=== PATIENT | female | born 1935 | race American Indian/Alaskan Native ===

== ENCOUNTER 2017-08-20 10:19 | Emergency (ER) | payer MEDICARE ==
[~2017-08-20] VITALS: Ht 149.9 cm; Wt 44.0 kg
[~2017-08-20 10:19] MED LIST: ACET325 PO; ACET500 PO; ALBU90OI INH; ALIVE WOMEN'S1 EAC1 PO; ATOR10; Artificial Tea1 EACH BOTHEYES; CHLCLI PO; CIPR500 PO; CITA20 PO; CONEST.625 PO; CONEST1.25; CYAN1000I IM; Cipro250 MG PO; DILT180ER PO; DILTIAZEM ER360 MG PO; Diflucan100 MG PO; Diltiazem ER240 M1 PO; ESTRTP VAG; FAMO20 PO; FEXO60; FEXO60 PO; FLUC150A PO; FLUT.05NI; Fenofibrate200 MG PO; Flonase 0.05% N16 GM; HYDR1TAB94 PO; HYOS0.375T PO; HYOSCYAMINE0.375 M1 PO; LEVSOD75 PO; LISI20 PO; LOPE2C PO; MECL12.5 PO; MECL25 PO; MELA3 PO; METO50; METO50 PO; MONISTAT 7 COM1 EACH VG; Macrobid 100 M100 MG PO; NITR.4SL; NITR.4SL SL; OMEP20ER; PANT40 PO; PHENA200; PHENA200 PO; Pyridium200 MG PO; RANI150 PO; Remicade100 MG IV; SCOPTP TOP; SUCR1 PO; THYR60; THYR60 PO; TRAZ100; TRAZ100 PO; TRAZ50 PO; TRICOR PO; ULTRA-LIGHT RO1 EACH MC; VIT1CAPS12 PO; Vitamin E400 UNI4
[2017-08-20 10:53] LABS: BASOPHILS ABSOLUTE AUTO 0.02 K/mm3 (0.00-0.23); BASOPHILS PERCENT AUTO 0 % (0-2); EOSINOPHILS ABSOLUTE AUTO 0.15 K/mm3 (0.00-0.68); EOSINOPHILS PERCENT AUTO 2 % (0-6); Hematocrit 33.8 % (33.0-51.0); Hemoglobin 11.2 g/dL (11.5-16.0); IMMATURE GRAN ABSOLUTE AUTO 0.01 K/mm3 (0.00-0.10); IMMATURE GRAN PERCENT AUTO 0 % (0-1); LYMPHOCYTES ABSOLUTE AUTO 2.18 K/mm3 (0.84-5.20); LYMPHOCYTES PERCENT AUTO 33 % (21-46); MONOCYTES ABSOLUTE AUTO 0.51 K/mm3 (0.16-1.47); MONOCYTES PERCENT AUTO 8 % (4-13); Mean Corpuscular HGB 30.7 pg (26.0-34.0); Mean Corpuscular HGB Conc 33.1 g/dL (31.5-36.5); Mean Corpuscular Volume 93 fL (80-100); Mean Platelet Volume 9.3 fL (9.1-12.4); NEUTROPHILS ABSOLUTE AUTO 3.71 K/mm3 (1.96-9.15); NEUTROPHILS PERCENT AUTO 56 % (41-73); Platelet Count 263 K/mm3 (150-400); RDW Coefficient Variation 14.8 % (11.7-14.2); Red Blood Cell Count 3.65 M/mm3 (3.80-5.20); White Blood Cell Count 6.58 K/mm3 (4.00-11.30)
[2017-08-20 11:08] LABS: Alanine Aminotransfer (ALT/SGP 17 U/L (12-78); Albumin, Blood 3.6 g/dL (3.4-5.0); Albumin/Globulin Ratio 0.9 (0.8-1.8); Alk Phos 57 U/L (50-136); Anion Gap 9 mmol/L (6-16); Aspartate Aminotrans (AST/SGOT 18 U/L (12-37); Bilirubin, Total 0.3 mg/dL (0.1-1.0); Blood Urea Nitrogen 26 mg/dL (8-24); Bun/Creatinine Ratio 27.4 (12.0-20.0); CO2, Blood 22 mmol/L (21-32); Calcium, Blood 8.9 mg/dL (8.5-10.1); Chloride, Blood 107 mmol/L (98-108); Creatinine, Blood 0.95 mg/dL (0.40-1.00); Glomerular Filtration Rate 60 (60-); Glucose, Blood 101 mg/dL (70-99); Potassium, Blood 4.9 mmol/L (3.5-5.5); Sodium, Blood 138 mmol/L (136-145); Total Protein, Blood 7.6 g/dL (6.4-8.2); Troponin I <0.015 ng/mL (0.000-0.040)
[2017-08-20 11:11] LABS: Thyroid Stimulating Hormone 0.212 uIU/mL (0.360-4.800)
[2017-08-20] MEDS ORDERED: Protonix40 MG PO (12:05)
[2017-08-20] MEDS ORDERED: Nitrostat0.4 MG SL (12:05)
[2018-04-18] MEDS ORDERED: ELIQUIS2.5 MG PO (10:31)
[2018-04-20] MEDS ORDERED: ACET325 PO (11:14)
[2018-04-20] MEDS ORDERED: PANT40 PO (11:20)
[2018-04-20] MEDS ORDERED: LISI5 (11:22)
[2018-04-20] MEDS ORDERED: LISI20 PO (11:33)
[2018-04-20] MEDS ORDERED: LIDOCAINE PAIN1 EACH (11:36)
[2018-04-20] MEDS ORDERED: HYOS.125 SL (11:41)
[2018-04-20] MEDS ORDERED: ONDA4ODT MM (12:29)
[2018-04-26] MEDS ORDERED: METO5A PO (16:45)
[2018-06-29] MEDS ORDERED: METO25ER PO (16:43)
[2018-06-29] MEDS ORDERED: CLOP75 PO (16:44)
[2018-06-29] MEDS ORDERED: LOPE2C PO (16:46)
== END 2017-08-20 12:25 | disposition home or self-care (01) ==
LOC: ER 10:19
PROVIDERS: Emergency Medicine
DX: R07.89 Other chest pain (principal); K27.9 Peptic ulcer, site unspecified, unspecified as acute or chronic, without hemorrhage or perforation; I25.2 Old myocardial infarction; Z88.5 Allergy status to narcotic agent; Z88.8 Allergy status to other drugs, medicaments and biological substances; Z88.0 Allergy status to penicillin; Z91.011 Allergy to milk products; Z88.2 Allergy status to sulfonamides; Z91.018 Allergy to other foods; Z79.899 Other long term (current) drug therapy; Z87.891 Personal history of nicotine dependence
CPT/HCPCS: 71045; 80053; 83690; 83880; 84443; 84484; 85025; 93005; 93010; 96374; 96375; 99284; J2060; J3490

== ENCOUNTER 2017-09-03 18:45 | Emergency (ER) | payer MEDICARE ==
[~2017-09-03] VITALS: Ht 149.9 cm; Wt 44.0 kg
[~2017-09-03 18:45] MED LIST changes: +Nitrostat0.4 MG SL; +Protonix40 MG PO
[2017-09-03] MEDS ORDERED: Citalopram HBr20 MG PO (19:28)
[2017-09-03] MEDS ORDERED: Artificial Tear15 M4 BOTHEYES (19:28)
[2017-09-03] MEDS ORDERED: DILTIAZEM 24HR360 MG PO (19:29)
[2017-09-03] MEDS ORDERED: LISI5 PO (19:30)
[2017-09-03] MEDS ORDERED: MELA3 PO (19:30)
[2017-09-03] MEDS ORDERED: GENTLE IRON PO (19:30)
[2017-09-03] MEDS ORDERED: LEVSOD75 PO (19:30)
[2017-09-03] MEDS ORDERED: PANT40 PO (19:33)
[2017-09-03] MEDS ORDERED: Estrace Vagin42.5 GM VAG (19:34)
[2017-09-03] MEDS ORDERED: TRAZ50 PO (19:34)
[2017-09-03] MEDS ORDERED: RANI150 PO (19:34)
[2017-09-03 19:35] LABS: BASOPHILS ABSOLUTE AUTO 0.02 K/mm3 (0.00-0.23); BASOPHILS PERCENT AUTO 0 % (0-2); EOSINOPHILS ABSOLUTE AUTO 0.27 K/mm3 (0.00-0.68); EOSINOPHILS PERCENT AUTO 4 % (0-6); Hematocrit 32.7 % (33.0-51.0); Hemoglobin 10.8 g/dL (11.5-16.0); IMMATURE GRAN ABSOLUTE AUTO 0.03 K/mm3 (0.00-0.10); IMMATURE GRAN PERCENT AUTO 0 % (0-1); LYMPHOCYTES ABSOLUTE AUTO 2.44 K/mm3 (0.84-5.20); LYMPHOCYTES PERCENT AUTO 35 % (21-46); MONOCYTES ABSOLUTE AUTO 0.71 K/mm3 (0.16-1.47); MONOCYTES PERCENT AUTO 10 % (4-13); Mean Corpuscular HGB 30.6 pg (26.0-34.0); Mean Corpuscular Volume 93 fL (80-100); Mean Platelet Volume 9.4 fL (9.1-12.4); NEUTROPHILS ABSOLUTE AUTO 3.56 K/mm3 (1.96-9.15); NEUTROPHILS PERCENT AUTO 51 % (41-73); Platelet Count 267 K/mm3 (150-400); RDW Coefficient Variation 14.3 % (11.7-14.2); RDW Standard Deviation 48.6 fL (35.1-46.3); Red Blood Cell Count 3.53 M/mm3 (3.80-5.20); White Blood Cell Count 7.03 K/mm3 (4.00-11.30)
[2017-09-03] MEDS ORDERED: ACET325 PO (19:37)
[2017-09-03] MEDS ORDERED: NITR.4SL SL (19:37)
[2017-09-03] MEDS ORDERED: LIDO700A20 TOP (19:37)
[2017-09-03] MEDS ORDERED: ONDA4ODT MM (19:38)
[2017-09-03] MEDS ORDERED: Gas-X125 M1 PO (19:39)
[2017-09-03] MEDS ORDERED: Preparation H1 EAC1 PR (19:39)
[2017-09-03] MEDS ORDERED: ALBU90OI INH (19:40)
[2017-09-03] MEDS ORDERED: ZOSTRIX HP56.6 GM TOP (19:40)
[2017-09-03] MEDS ORDERED: CALMOSEPTINE O3.5 GM TOP (19:41)
[2017-09-03 19:49] LABS: Alanine Aminotransfer (ALT/SGP 25 U/L (12-78); Albumin, Blood 3.7 g/dL (3.4-5.0); Albumin/Globulin Ratio 0.9 (0.8-1.8); Alk Phos 67 U/L (50-136); Anion Gap 10 mmol/L (6-16); Aspartate Aminotrans (AST/SGOT 24 U/L (12-37); Bilirubin, Total 0.3 mg/dL (0.1-1.0); Blood Urea Nitrogen 21 mg/dL (8-24); Bun/Creatinine Ratio 21.4 (12.0-20.0); CO2, Blood 22 mmol/L (21-32); Chloride, Blood 105 mmol/L (98-108); Creatinine, Blood 0.98 mg/dL (0.40-1.00); Globulin, Blood 4.1 g/dL (2.2-4.0); Glomerular Filtration Rate 58 (60-); Glucose, Blood 111 mg/dL (70-99); Potassium, Blood 4.8 mmol/L (3.5-5.5); Sodium, Blood 137 mmol/L (136-145); Total Protein, Blood 7.8 g/dL (6.4-8.2); Troponin I <0.015 ng/mL (0.000-0.040)
[2018-04-18] MEDS ORDERED: ELIQUIS2.5 MG PO (10:31)
[2018-04-20] MEDS ORDERED: ACET325 PO (11:14)
[2018-04-20] MEDS ORDERED: PANT40 PO (11:20)
[2018-04-20] MEDS ORDERED: LISI5 (11:22)
[2018-04-20] MEDS ORDERED: LISI20 PO (11:33)
[2018-04-20] MEDS ORDERED: LIDOCAINE PAIN1 EACH (11:36)
[2018-04-20] MEDS ORDERED: HYOS.125 SL (11:41)
[2018-04-20] MEDS ORDERED: ONDA4ODT MM (12:29)
[2018-04-26] MEDS ORDERED: METO5A PO (16:45)
[2018-06-29] MEDS ORDERED: METO25ER PO (16:43)
[2018-06-29] MEDS ORDERED: CLOP75 PO (16:44)
[2018-06-29] MEDS ORDERED: LOPE2C PO (16:46)
== END 2017-09-03 21:20 | disposition home or self-care (01) ==
LOC: ER 18:45
PROVIDERS: Emergency Medicine
DX: K21.9 Gastro-esophageal reflux disease without esophagitis (principal); F03.90 Unspecified dementia, unspecified severity, without behavioral disturbance, psychotic disturbance, mood disturbance, and anxiety; I10 Essential (primary) hypertension; E03.9 Hypothyroidism, unspecified
CPT/HCPCS: 71045; 76705; 80053; 83690; 84484; 85025; 93005; 93010; 96374; 96375; 96376; 99284; J1170; J2405

== ENCOUNTER → 2017-09-22 | Outpatient (CLI) | payer MEDICARE ==
[~2017-09-22] MED LIST changes: +ALLERGY RELIEF10 MG PO; +ASPI81CH PO; +ATOR40TA PO; +Amiodarone HCl200 MG PO; +Artificial Tear15 M4 BOTHEYES; +BISA10S PR; +CALMOSEPTINE O3.5 GM TOP; +CLOP75 PO; +Citalopram HBr20 MG PO; +DILTIAZEM 24HR360 MG PO; +EFFIENT10 MG PO; +ELIQUIS2.5 MG PO; +Estrace Vagin42.5 GM VAG; +FURO40 PO; +GENTLE IRON PO; +Gas-X125 M1 PO; +HEARTBURN RELI150 M1 PO; +HEMORRHOIDAL OI TOP; +HYDPAM50 PO; +HYOS.125 MM; +HYOS.125 SL; +ISOD40ER PO; +Isosorbide Mono60 MG PO; +LIDO700A20 TOP; +LIDOCAINE PAIN1 EACH; +LISI5; +LISI5 PO; +LOPE2EL PO; +LORA1SY PO; +METO25 PO; +METO25ER PO; +METO5A PO; +Milk Of Ma400 MG/5 M PO; +ONDA4ODT MM; +Preparation H1 EAC1 PR; +RANO500T PO; +SODBIC650 PO; +TAMS.4ER PO; +TUMS300 MG PO; +ZOSTRIX HP56.6 GM TOP; +ZOSTRIX56.6 GM TOP; +Zofran Odt4 MG SL
[2017-09-22 15:52] LABS: BASOPHILS ABSOLUTE AUTO 0.04 K/mm3 (0.00-0.23); BASOPHILS PERCENT AUTO 1 % (0-2); EOSINOPHILS ABSOLUTE AUTO 0.28 K/mm3 (0.00-0.68); EOSINOPHILS PERCENT AUTO 4 % (0-6); Hematocrit 33.4 % (33.0-51.0); Hemoglobin 11.1 g/dL (11.5-16.0); IMMATURE GRAN ABSOLUTE AUTO 0.03 K/mm3 (0.00-0.10); IMMATURE GRAN PERCENT AUTO 0 % (0-1); LYMPHOCYTES ABSOLUTE AUTO 2.14 K/mm3 (0.84-5.20); LYMPHOCYTES PERCENT AUTO 32 % (21-46); MONOCYTES ABSOLUTE AUTO 0.76 K/mm3 (0.16-1.47); MONOCYTES PERCENT AUTO 11 % (4-13); Mean Corpuscular HGB 31.1 pg (26.0-34.0); Mean Corpuscular HGB Conc 33.2 g/dL (31.5-36.5); Mean Corpuscular Volume 94 fL (80-100); Mean Platelet Volume 9.1 fL (9.1-12.4); NEUTROPHILS PERCENT AUTO 52 % (41-73); Platelet Count 284 K/mm3 (150-400); RDW Coefficient Variation 14.5 % (11.7-14.2); RDW Standard Deviation 49.7 fL (35.1-46.3); Red Blood Cell Count 3.57 M/mm3 (3.80-5.20); White Blood Cell Count 6.75 K/mm3 (4.00-11.30)
[2017-09-22 16:20] LABS: Albumin/Globulin Ratio 1.1 (0.8-1.8); Bilirubin, Total 0.2 mg/dL (0.1-1.0); Calcium, Blood 9.1 mg/dL (8.5-10.1); Creatinine, Blood 1.1 mg/dL (0.40-1.00); Globulin, Blood 3.6 g/dL (2.2-4.0); Total Protein, Blood 7.6 g/dL (6.4-8.2)
== END | disposition home or self-care (01) ==
LOC: LAB SHORT 15:49 → LAB EV 15:49
PROVIDERS: Physician Assistant
DX: L29.9 Pruritus, unspecified (principal)
CPT/HCPCS: 80053; 85025

== ENCOUNTER 2017-09-24 05:03 | Observation (INO) | payer MEDICARE ==
[~2017-09-24] VITALS: Ht 149.9 cm; Wt 46.2 kg
[~2017-09-24 05:03] MED LIST changes: -ALLERGY RELIEF10 MG PO; -ASPI81CH PO; -ATOR40TA PO; -Amiodarone HCl200 MG PO; -BISA10S PR; -CLOP75 PO; -EFFIENT10 MG PO; -ELIQUIS2.5 MG PO; -FURO40 PO; -HEARTBURN RELI150 M1 PO; -HEMORRHOIDAL OI TOP; -HYDPAM50 PO; -HYOS.125 MM; -HYOS.125 SL; -ISOD40ER PO; -Isosorbide Mono60 MG PO; -LIDOCAINE PAIN1 EACH; -LISI5; -LOPE2EL PO; -LORA1SY PO; -METO25 PO; -METO25ER PO; -METO5A PO; -Milk Of Ma400 MG/5 M PO; -RANO500T PO; -SODBIC650 PO; -TAMS.4ER PO; -TUMS300 MG PO; -ZOSTRIX56.6 GM TOP; -Zofran Odt4 MG SL
[2017-09-24 05:56] LABS: BASOPHILS ABSOLUTE AUTO 0.01 K/mm3 (0.00-0.23); BASOPHILS PERCENT AUTO 0 % (0-2); EOSINOPHILS ABSOLUTE AUTO 0.11 K/mm3 (0.00-0.68); EOSINOPHILS PERCENT AUTO 1 % (0-6); Hematocrit 39.1 % (33.0-51.0); Hemoglobin 12.9 g/dL (11.5-16.0); IMMATURE GRAN ABSOLUTE AUTO 0.03 K/mm3 (0.00-0.10); IMMATURE GRAN PERCENT AUTO 0 % (0-1); LYMPHOCYTES ABSOLUTE AUTO 0.53 K/mm3 (0.84-5.20); LYMPHOCYTES PERCENT AUTO 5 % (21-46); MONOCYTES ABSOLUTE AUTO 0.76 K/mm3 (0.16-1.47); MONOCYTES PERCENT AUTO 7 % (4-13); Mean Corpuscular HGB 30.9 pg (26.0-34.0); Mean Corpuscular Volume 94 fL (80-100); Mean Platelet Volume 9.2 fL (9.1-12.4); NEUTROPHILS ABSOLUTE AUTO 9.52 K/mm3 (1.96-9.15); NEUTROPHILS PERCENT AUTO 87 % (41-73); Platelet Count 258 K/mm3 (150-400); RDW Coefficient Variation 14.5 % (11.7-14.2); RDW Standard Deviation 50.2 fL (35.1-46.3); Red Blood Cell Count 4.17 M/mm3 (3.80-5.20); White Blood Cell Count 10.96 K/mm3 (4.00-11.30)
[2017-09-24 06:14] LABS: Alanine Aminotransfer (ALT/SGP 75 U/L (12-78); Albumin, Blood 3.8 g/dL (3.4-5.0); Albumin/Globulin Ratio 0.8 (0.8-1.8); Alk Phos 75 U/L (50-136); Anion Gap 10 mmol/L (6-16); Aspartate Aminotrans (AST/SGOT 123 U/L (12-37); Bilirubin, Total 0.5 mg/dL (0.1-1.0); Blood Urea Nitrogen 19 mg/dL (8-24); Bun/Creatinine Ratio 21.5 (12.0-20.0); CO2, Blood 22 mmol/L (21-32); Chloride, Blood 107 mmol/L (98-108); Creatinine, Blood 0.88 mg/dL (0.40-1.00); Globulin, Blood 4.5 g/dL (2.2-4.0); Glomerular Filtration Rate >60 (60-); Glucose, Blood 112 mg/dL (70-99); Potassium, Blood 4.8 mmol/L (3.5-5.5); Sodium, Blood 139 mmol/L (136-145); Total Protein, Blood 8.3 g/dL (6.4-8.2); Troponin I 0.123 ng/mL (0.000-0.040)
[2017-09-24] MEDS ORDERED: HYDPAM50 PO (06:29)
[2017-09-24] MEDS ORDERED: RANI150 PO (06:30)
[2017-09-24] MEDS ORDERED: PANT40 PO (06:30)
[2017-09-24] MEDS ORDERED: ISOD40ER PO (06:32)
[2017-09-24] MEDS ORDERED: BISA10S PR (06:33)
[2017-09-24] MEDS ORDERED: TUMS300 MG PO (06:34)
[2017-09-24] MEDS ORDERED: HEMORRHOIDAL OI TOP (06:36)
[2017-09-24] MEDS ORDERED: LOPE2EL PO (06:40)
[2017-09-24] MEDS ORDERED: LORA1SY PO (06:40)
[2017-09-24] MEDS ORDERED: Milk Of Ma400 MG/5 M PO (06:41)
[2017-09-24] MEDS ORDERED: ZOSTRIX56.6 GM TOP (06:42)
[2017-09-24 09:28] LABS: Magnesium, Blood 1.7 mg/dL (1.6-2.4); Phosphorus, Blood 3.2 mg/dL (2.5-4.9)
[2017-09-25 05:29] LABS: Hematocrit 33.7 % (33.0-51.0); Hemoglobin 10.6 g/dL (11.5-16.0); Mean Corpuscular HGB 30.7 pg (26.0-34.0); Mean Corpuscular HGB Conc 31.5 g/dL (31.5-36.5); Mean Platelet Volume 9.6 fL (9.1-12.4); Platelet Count 220 K/mm3 (150-400); RDW Coefficient Variation 14.6 % (11.7-14.2); Red Blood Cell Count 3.45 M/mm3 (3.80-5.20); White Blood Cell Count 6.67 K/mm3 (4.00-11.30)
[2017-09-25 05:37] LABS: Mean Corpuscular Volume 98 fL (80-100)
[2017-09-25 05:51] LABS: Anion Gap 7 mmol/L (6-16); Blood Urea Nitrogen 23 mg/dL (8-24); Bun/Creatinine Ratio 20.9 (12.0-20.0); CHOL/HDL RATIO 2.7; CO2, Blood 23 mmol/L (21-32); Calcium, Blood 8.2 mg/dL (8.5-10.1); Chloride, Blood 112 mmol/L (98-108); Cholesterol 122 mg/dL (50-200); Glomerular Filtration Rate 51 (60-); Glucose, Blood 86 mg/dL (70-99); HDL Cholesterol 46 mg/dL (>39); LDL/HDL RATIO 0.6; Low Density Lipoprotein Chol 27 mg/dL (0-110); Potassium, Blood 4.7 mmol/L (3.5-5.5); Sodium, Blood 142 mmol/L (136-145); Triglycerides 243 mg/dL (30-160); Very Low Density Lipoprot Chol 48 mg/dL (6-32)
[2017-09-26] MEDS ORDERED: METO25 PO (09:02)
[2017-09-26] MEDS ORDERED: HYOS.125 MM (09:02)
[2017-09-26] MEDS ORDERED: RANO500T PO (09:03)
[2018-04-18] MEDS ORDERED: ELIQUIS2.5 MG PO (10:31)
[2018-04-20] MEDS ORDERED: ACET325 PO (11:14)
[2018-04-20] MEDS ORDERED: PANT40 PO (11:20)
[2018-04-20] MEDS ORDERED: LISI5 (11:22)
[2018-04-20] MEDS ORDERED: LISI20 PO (11:33)
[2018-04-20] MEDS ORDERED: LIDOCAINE PAIN1 EACH (11:36)
[2018-04-20] MEDS ORDERED: HYOS.125 SL (11:41)
[2018-04-20] MEDS ORDERED: ONDA4ODT MM (12:29)
[2018-04-26] MEDS ORDERED: METO5A PO (16:45)
[2018-06-29] MEDS ORDERED: METO25ER PO (16:43)
[2018-06-29] MEDS ORDERED: CLOP75 PO (16:44)
[2018-06-29] MEDS ORDERED: LOPE2C PO (16:46)
== END 2017-09-26 12:09 | disposition home or self-care (01) ==
LOC: ER 05:03 → MEDS 05:04 → ENPENDDIS 09-26 08:30 → MEDS 09-26 12:09
PROVIDERS: Emergency Medicine; Family Medicine
DX: R07.9 Chest pain, unspecified (principal); I10 Essential (primary) hypertension; I48.2 Chronic atrial fibrillation; F03.90 Unspecified dementia, unspecified severity, without behavioral disturbance, psychotic disturbance, mood disturbance, and anxiety; R11.2 Nausea with vomiting, unspecified; E78.1 Pure hyperglyceridemia; K58.9 Irritable bowel syndrome, unspecified; I25.2 Old myocardial infarction; M06.9 Rheumatoid arthritis, unspecified; R79.89 Other specified abnormal findings of blood chemistry; D50.0 Iron deficiency anemia secondary to blood loss (chronic); E03.9 Hypothyroidism, unspecified; E78.5 Hyperlipidemia, unspecified; M79.7 Fibromyalgia; Z90.49 Acquired absence of other specified parts of digestive tract; Z90.710 Acquired absence of both cervix and uterus; Z90.722 Acquired absence of ovaries, bilateral; Z87.11 Personal history of peptic ulcer disease; Z98.41 Cataract extraction status, right eye; Z98.42 Cataract extraction status, left eye; Z96.1 Presence of intraocular lens; Z98.890 Other specified postprocedural states; Z87.891 Personal history of nicotine dependence; Z88.8 Allergy status to other drugs, medicaments and biological substances; Z79.899 Other long term (current) drug therapy
CPT/HCPCS: 36415; 71046; 74176; 80048; 80053; 80061; 83690; 83735; 84100; 84484; 85025; 85027; 93005; 93010; 93017; 93350; 94640; 94760; 96372; 96374; 96375; 96376; 99285; C9113; G0378; J0461; J1170; J1250; J1650; J2405; J2550; J7030; J7040; Q0163; Q0177

== ENCOUNTER 2017-09-26 17:41 | Emergency (ER) | payer MEDICARE ==
[~2017-09-26] VITALS: Ht 162.6 cm; Wt 58.1 kg
[~2017-09-26 17:41] MED LIST changes: +BISA10S PR; +HEMORRHOIDAL OI TOP; +HYDPAM50 PO; +HYOS.125 MM; +ISOD40ER PO; +LOPE2EL PO; +LORA1SY PO; +METO25 PO; +Milk Of Ma400 MG/5 M PO; +RANO500T PO; +TUMS300 MG PO; +ZOSTRIX56.6 GM TOP
[2017-09-26 18:17] LABS: BASOPHILS ABSOLUTE AUTO 0.02 K/mm3 (0.00-0.23); BASOPHILS PERCENT AUTO 0 % (0-2); EOSINOPHILS ABSOLUTE AUTO 0.02 K/mm3 (0.00-0.68); EOSINOPHILS PERCENT AUTO 0 % (0-6); Hematocrit 36.1 % (33.0-51.0); Hemoglobin 11.6 g/dL (11.5-16.0); IMMATURE GRAN ABSOLUTE AUTO 0.12 K/mm3 (0.00-0.10); IMMATURE GRAN PERCENT AUTO 1 % (0-1); LYMPHOCYTES ABSOLUTE AUTO 1.94 K/mm3 (0.84-5.20); LYMPHOCYTES PERCENT AUTO 11 % (21-46); MONOCYTES ABSOLUTE AUTO 1.12 K/mm3 (0.16-1.47); MONOCYTES PERCENT AUTO 7 % (4-13); Mean Corpuscular HGB 30.8 pg (26.0-34.0); Mean Corpuscular HGB Conc 32.1 g/dL (31.5-36.5); Mean Corpuscular Volume 96 fL (80-100); Mean Platelet Volume 9.8 fL (9.1-12.4); NEUTROPHILS ABSOLUTE AUTO 13.73 K/mm3 (1.96-9.15); NEUTROPHILS PERCENT AUTO 81 % (41-73); Platelet Count 285 K/mm3 (150-400); RDW Coefficient Variation 14.2 % (11.7-14.2); RDW Standard Deviation 50.1 fL (35.1-46.3); Red Blood Cell Count 3.77 M/mm3 (3.80-5.20); White Blood Cell Count 16.95 K/mm3 (4.00-11.30)
[2017-09-26 18:18] LABS: Base Excess Venous -8.4 mmol/L; PCO2 Venous 40.9 mmHg (38-42); PO2 Venous 81.1 mmHg (38-42); pH Blood Venous 7.27 (7.34-7.37)
[2017-09-26 18:34] LABS: D-Dimer, Quantitative 0.45 mg/L FEU (0.00-0.52)
[2017-09-26 18:43] LABS: Albumin, Blood 3.7 g/dL (3.4-5.0); Albumin/Globulin Ratio 0.8 (0.8-1.8); Bilirubin, Total 0.5 mg/dL (0.1-1.0); Bun/Creatinine Ratio 23.6 (12.0-20.0); Calcium, Blood 8.9 mg/dL (8.5-10.1); Creatinine, Blood 1.61 mg/dL (0.40-1.00); Globulin, Blood 4.9 g/dL (2.2-4.0); Potassium, Blood 5.2 mmol/L (3.5-5.5); Total Protein, Blood 8.6 g/dL (6.4-8.2)
[2017-09-26 19:07] LABS: Troponin I 1.7 ng/mL (0.000-0.040)
[2017-09-26 20:53] LABS: International Normalized Ratio 0.98; Prothrombin Time Results 10.2 Sec (9.7-11.5)
[2018-04-18] MEDS ORDERED: ELIQUIS2.5 MG PO (10:31)
[2018-04-20] MEDS ORDERED: ACET325 PO (11:14)
[2018-04-20] MEDS ORDERED: PANT40 PO (11:20)
[2018-04-20] MEDS ORDERED: LISI5 (11:22)
[2018-04-20] MEDS ORDERED: LISI20 PO (11:33)
[2018-04-20] MEDS ORDERED: LIDOCAINE PAIN1 EACH (11:36)
[2018-04-20] MEDS ORDERED: HYOS.125 SL (11:41)
[2018-04-20] MEDS ORDERED: ONDA4ODT MM (12:29)
[2018-04-26] MEDS ORDERED: METO5A PO (16:45)
[2018-06-29] MEDS ORDERED: METO25ER PO (16:43)
[2018-06-29] MEDS ORDERED: CLOP75 PO (16:44)
[2018-06-29] MEDS ORDERED: LOPE2C PO (16:46)
== END 2017-09-26 22:55 | disposition short-term general hospital (02) ==
LOC: ER 17:41
PROVIDERS: Emergency Medicine
DX: I21.4 Non-ST elevation (NSTEMI) myocardial infarction (principal); J96.91 Respiratory failure, unspecified with hypoxia; I10 Essential (primary) hypertension; F03.90 Unspecified dementia, unspecified severity, without behavioral disturbance, psychotic disturbance, mood disturbance, and anxiety; E03.9 Hypothyroidism, unspecified; I48.2 Chronic atrial fibrillation; K58.9 Irritable bowel syndrome, unspecified; E78.1 Pure hyperglyceridemia; Z90.710 Acquired absence of both cervix and uterus; Z90.49 Acquired absence of other specified parts of digestive tract; Z88.5 Allergy status to narcotic agent; Z88.2 Allergy status to sulfonamides; Z88.6 Allergy status to analgesic agent; Z88.8 Allergy status to other drugs, medicaments and biological substances; Z91.018 Allergy to other foods; Z91.011 Allergy to milk products; Z79.899 Other long term (current) drug therapy
CPT/HCPCS: 71045; 80053; 82803; 83880; 84484; 85025; 85379; 85610; 85730; 93005; 93010; 96365; 96375; 99285; J1644; J2270; J3010; J7040

== ENCOUNTER 2017-10-31 11:26 | Emergency (ER) | payer MEDICARE ==
[~2017-10-31] VITALS: Ht 152.4 cm; Wt 44.0 kg
[2017-10-31] MEDS ORDERED: ATOR40TA PO (11:48)
[2017-10-31] MEDS ORDERED: ELIQUIS2.5 MG PO (11:49)
[2017-10-31] MEDS ORDERED: EFFIENT10 MG PO (11:49)
[2017-10-31] MEDS ORDERED: ASPI81CH PO (11:51)
[2017-10-31] MEDS ORDERED: FURO40 PO (11:51)
[2017-10-31] MEDS ORDERED: Amiodarone HCl200 MG PO (11:51)
[2017-10-31] MEDS ORDERED: Isosorbide Mono60 MG PO (11:52)
[2017-10-31 11:53] LABS: BASOPHILS ABSOLUTE AUTO 0.05 K/mm3 (0.00-0.23); BASOPHILS PERCENT AUTO 1 % (0-2); EOSINOPHILS ABSOLUTE AUTO 0.06 K/mm3 (0.00-0.68); EOSINOPHILS PERCENT AUTO 1 % (0-6); Hematocrit 33.4 % (33.0-51.0); Hemoglobin 10.6 g/dL (11.5-16.0); IMMATURE GRAN ABSOLUTE AUTO 0.09 K/mm3 (0.00-0.10); IMMATURE GRAN PERCENT AUTO 1 % (0-1); LYMPHOCYTES ABSOLUTE AUTO 2.81 K/mm3 (0.84-5.20); LYMPHOCYTES PERCENT AUTO 27 % (21-46); MONOCYTES PERCENT AUTO 8 % (4-13); Mean Corpuscular HGB 29.9 pg (26.0-34.0); Mean Corpuscular HGB Conc 31.7 g/dL (31.5-36.5); Mean Corpuscular Volume 94 fL (80-100); Mean Platelet Volume 9.7 fL (9.1-12.4); NEUTROPHILS ABSOLUTE AUTO 6.44 K/mm3 (1.96-9.15); NEUTROPHILS PERCENT AUTO 63 % (41-73); Platelet Count 397 K/mm3 (150-400); RDW Coefficient Variation 14.6 % (11.7-14.2); RDW Standard Deviation 49.8 fL (35.1-46.3); Red Blood Cell Count 3.55 M/mm3 (3.80-5.20); White Blood Cell Count 10.25 K/mm3 (4.00-11.30)
[2017-10-31] MEDS ORDERED: METO25ER PO (11:53)
[2017-10-31 12:05] LABS: Albumin, Blood 3.3 g/dL (3.4-5.0); Albumin/Globulin Ratio 0.9 (0.8-1.8); Bilirubin, Total 0.5 mg/dL (0.1-1.0); Calcium, Blood 8.2 mg/dL (8.5-10.1); Creatinine, Blood 1.5 mg/dL (0.40-1.00); Globulin, Blood 3.6 g/dL (2.2-4.0); Potassium, Blood 5.7 mmol/L (3.5-5.5); Total Protein, Blood 6.9 g/dL (6.4-8.2)
[2017-10-31] MEDS ORDERED: Zofran Odt4 MG SL (14:27)
[2018-04-18] MEDS ORDERED: ELIQUIS2.5 MG PO (10:31)
[2018-04-20] MEDS ORDERED: ACET325 PO (11:14)
[2018-04-20] MEDS ORDERED: PANT40 PO (11:20)
[2018-04-20] MEDS ORDERED: LISI5 (11:22)
[2018-04-20] MEDS ORDERED: LISI20 PO (11:33)
[2018-04-20] MEDS ORDERED: LIDOCAINE PAIN1 EACH (11:36)
[2018-04-20] MEDS ORDERED: HYOS.125 SL (11:41)
[2018-04-20] MEDS ORDERED: ONDA4ODT MM (12:29)
[2018-04-26] MEDS ORDERED: METO5A PO (16:45)
[2018-06-29] MEDS ORDERED: METO25ER PO (16:43)
[2018-06-29] MEDS ORDERED: CLOP75 PO (16:44)
[2018-06-29] MEDS ORDERED: LOPE2C PO (16:46)
== END 2017-10-31 15:47 | disposition home or self-care (01) ==
LOC: ER 11:26
PROVIDERS: Physician Assistant
DX: J90 Pleural effusion, not elsewhere classified (principal); R11.2 Nausea with vomiting, unspecified; E03.9 Hypothyroidism, unspecified; E78.5 Hyperlipidemia, unspecified; Z88.5 Allergy status to narcotic agent; Z91.018 Allergy to other foods; Z91.011 Allergy to milk products; Z88.0 Allergy status to penicillin; Z88.2 Allergy status to sulfonamides; Z88.6 Allergy status to analgesic agent; Z88.8 Allergy status to other drugs, medicaments and biological substances; Z79.899 Other long term (current) drug therapy; Z79.82 Long term (current) use of aspirin; Z87.891 Personal history of nicotine dependence; Z87.11 Personal history of peptic ulcer disease
CPT/HCPCS: 71046; 74176; 80053; 83690; 85025; 93005; 93010; 96361; 96374; 99284; J2405; J7030

== ENCOUNTER 2018-04-08 14:39 | Inpatient (IN) | payer MEDICARE ==
[~2018-04-08] VITALS: Ht 152.4 cm; Wt 64.1 kg
[~2018-04-08 14:39] MED LIST changes: +ASPI81CH PO; +ATOR40TA PO; +Amiodarone HCl200 MG PO; +EFFIENT10 MG PO; +ELIQUIS2.5 MG PO; +FURO40 PO; +ISOMON20 PO; +METO25ER PO; +Zofran Odt4 MG SL
[2018-04-08 15:14] LABS: Source, Urine Clean Catch
[2018-04-08] MEDS ORDERED: ALLERGY RELIEF10 MG PO (15:15)
[2018-04-08] MEDS ORDERED: HEARTBURN RELI150 M1 PO (15:20)
[2018-04-08 15:25] LABS: BASOPHILS ABSOLUTE AUTO 0.02 K/mm3 (0.00-0.23); BASOPHILS PERCENT AUTO 0 % (0-2); EOSINOPHILS ABSOLUTE AUTO 0.06 K/mm3 (0.00-0.68); EOSINOPHILS PERCENT AUTO 1 % (0-6); Hematocrit 37.3 % (33.0-51.0); Hemoglobin 12.4 g/dL (11.5-16.0); IMMATURE GRAN ABSOLUTE AUTO 0.04 K/mm3 (0.00-0.10); IMMATURE GRAN PERCENT AUTO 1 % (0-1); LYMPHOCYTES ABSOLUTE AUTO 2.09 K/mm3 (0.84-5.20); LYMPHOCYTES PERCENT AUTO 25 % (21-46); MONOCYTES ABSOLUTE AUTO 0.85 K/mm3 (0.16-1.47); MONOCYTES PERCENT AUTO 10 % (4-13); Mean Corpuscular HGB 29.4 pg (26.0-34.0); Mean Corpuscular HGB Conc 33.2 g/dL (31.5-36.5); Mean Corpuscular Volume 88 fL (80-100); Mean Platelet Volume 9.7 fL (9.1-12.4); NEUTROPHILS ABSOLUTE AUTO 5.24 K/mm3 (1.96-9.15); NEUTROPHILS PERCENT AUTO 63 % (41-73); Platelet Count 286 K/mm3 (150-400); RDW Coefficient Variation 14.7 % (11.7-14.2); RDW Standard Deviation 47.8 fL (35.1-46.3); Red Blood Cell Count 4.22 M/mm3 (3.80-5.20)
[2018-04-08 15:29] LABS: Appearance, Urine Clear (Clear); Bilirubin, Urine Neg (Neg); Blood, Urine 2+ (Neg); Color, Urine Yellow (P-Yellow); Glucose Qualitative, Urine Neg (Neg); Ketones, Urine Neg (Neg); Leukocyte Esterase, Urine Neg (Neg); Nitrite, Urine Neg (Neg); Protein, Urine 2+ (Neg); Specific Gravity, Urine 1.015 (1.003-1.022); Urobilinogen, Urine NORM (Normal)
[2018-04-08 15:40] LABS: Alanine Aminotransfer (ALT/SGP 28 U/L (12-78); Albumin, Blood 4.3 g/dL (3.4-5.0); Albumin/Globulin Ratio 0.9 (0.8-1.8); Alk Phos 75 U/L (50-136); Anion Gap 10 mmol/L (6-16); Aspartate Aminotrans (AST/SGOT 26 U/L (12-37); Bilirubin, Total 0.5 mg/dL (0.1-1.0); Blood Urea Nitrogen 48 mg/dL (8-24); Bun/Creatinine Ratio 34.3 (12.0-20.0); CO2, Blood 21 mmol/L (21-32); Calcium, Blood 9.2 mg/dL (8.5-10.1); Chloride, Blood 103 mmol/L (98-108); Globulin, Blood 4.8 g/dL (2.2-4.0); Glomerular Filtration Rate 38 (60-); Glucose, Blood 116 mg/dL (70-99); Potassium, Blood 4.9 mmol/L (3.5-5.5); Sodium, Blood 134 mmol/L (136-145); Total Protein, Blood 9.1 g/dL (6.4-8.2)
[2018-04-08 15:41] LABS: Bacteria Few /hpf; Squamous Epithelial Cells Few /hpf (Few); White Blood Cells, Urine 0-2 /hpf (0-5)
[2018-04-08 15:41] LABS: International Normalized Ratio 1.02; Prothrombin Time Results 10.5 Sec (9.7-11.5)
[2018-04-08 15:42] LABS: Troponin I <0.015 ng/mL (0.000-0.040)
[2018-04-09 03:30] LABS: Bun/Creatinine Ratio 23.6 (12.0-20.0); Creatinine, Blood 2.29 mg/dL (0.40-1.00)
[2018-04-10 05:05] LABS: BASOPHILS ABSOLUTE AUTO 0.02 K/mm3 (0.00-0.23); BASOPHILS PERCENT AUTO 0 % (0-2); EOSINOPHILS PERCENT AUTO 4 % (0-6); Hematocrit 38.1 % (33.0-51.0); Hemoglobin 11.8 g/dL (11.5-16.0); IMMATURE GRAN ABSOLUTE AUTO 0.03 K/mm3 (0.00-0.10); IMMATURE GRAN PERCENT AUTO 0 % (0-1); LYMPHOCYTES ABSOLUTE AUTO 2.73 K/mm3 (0.84-5.20); LYMPHOCYTES PERCENT AUTO 34 % (21-46); MONOCYTES ABSOLUTE AUTO 0.75 K/mm3 (0.16-1.47); MONOCYTES PERCENT AUTO 9 % (4-13); Mean Corpuscular HGB 28.7 pg (26.0-34.0); Mean Platelet Volume 9.7 fL (9.1-12.4); NEUTROPHILS ABSOLUTE AUTO 4.13 K/mm3 (1.96-9.15); NEUTROPHILS PERCENT AUTO 52 % (41-73); Platelet Count 226 K/mm3 (150-400); RDW Coefficient Variation 15.1 % (11.7-14.2); RDW Standard Deviation 51.7 fL (35.1-46.3); Red Blood Cell Count 4.11 M/mm3 (3.80-5.20); White Blood Cell Count 7.96 K/mm3 (4.00-11.30)
[2018-04-10 05:12] LABS: Mean Corpuscular Volume 93 fL (80-100)
[2018-04-10 05:22] LABS: Bun/Creatinine Ratio 20.5 (12.0-20.0); Calcium, Blood 8.4 mg/dL (8.5-10.1); Creatinine, Blood 3.65 mg/dL (0.40-1.00); Magnesium, Blood 2.8 mg/dL (1.6-2.4); Potassium, Blood 5.4 mmol/L (3.5-5.5)
[2018-04-10 09:03] LABS: CPK Creatine Kinase 117 U/L (26-193)
[2018-04-10 09:06] LABS: Alanine Aminotransfer (ALT/SGP 22 U/L (12-78); Albumin, Blood 3.4 g/dL (3.4-5.0); Albumin/Globulin Ratio 0.8 (0.8-1.8); Alk Phos 60 U/L (50-136); Aspartate Aminotrans (AST/SGOT 26 U/L (12-37); Bilirubin, Direct <0.1 mg/dL (0.0-0.3); Bilirubin, Indirect Unable to Calculate mg/dL (0.1-0.7); Bilirubin, Total 0.4 mg/dL (0.1-1.0); Total Protein, Blood 7.4 g/dL (6.4-8.2)
[2018-04-11 05:39] LABS: Hematocrit 31.6 % (33.0-51.0); Hemoglobin 9.7 g/dL (11.5-16.0)
[2018-04-11 06:09] LABS: Magnesium, Blood 2.4 mg/dL (1.6-2.4); Uric Acid, Blood 8.1 mg/dL (2.6-6.0)
[2018-04-11 06:10] LABS: Albumin, Blood 3.2 g/dL (3.4-5.0); Anion Gap 9 mmol/L (6-16); Blood Urea Nitrogen 72 mg/dL (8-24); Bun/Creatinine Ratio 30.1 (12.0-20.0); CO2, Blood 19 mmol/L (21-32); Calcium, Blood 7.6 mg/dL (8.5-10.1); Chloride, Blood 111 mmol/L (98-108); Creatinine, Blood 2.39 mg/dL (0.40-1.00); Glomerular Filtration Rate 21 (60-); Glucose, Blood 86 mg/dL (70-99); Phosphorus, Blood 4.2 mg/dL (2.5-4.9); Potassium, Blood 5.3 mmol/L (3.5-5.5); Sodium, Blood 139 mmol/L (136-145)
[2018-04-12 05:36] LABS: Hematocrit 30.4 % (33.0-51.0); Hemoglobin 9.7 g/dL (11.5-16.0)
[2018-04-12 05:55] LABS: Anion Gap 6 mmol/L (6-16); Blood Urea Nitrogen 38 mg/dL (8-24); Bun/Creatinine Ratio 29.5 (12.0-20.0); CO2, Blood 21 mmol/L (21-32); Calcium, Blood 7.9 mg/dL (8.5-10.1); Chloride, Blood 116 mmol/L (98-108); Creatinine, Blood 1.29 mg/dL (0.40-1.00); Glomerular Filtration Rate 42 (60-); Glucose, Blood 86 mg/dL (70-99); Magnesium, Blood 2.2 mg/dL (1.6-2.4); Phosphorus, Blood 2.3 mg/dL (2.5-4.9); Potassium, Blood 5.1 mmol/L (3.5-5.5); Sodium, Blood 143 mmol/L (136-145)
[2018-04-12] MEDS ORDERED: SODBIC650 PO (09:55)
[2018-04-12] MEDS ORDERED: TAMS.4ER PO (09:57)
[2018-04-13 05:04] LABS: Hematocrit 31.5 % (33.0-51.0); Hemoglobin 10.3 g/dL (11.5-16.0)
[2018-04-13 05:26] LABS: Albumin, Blood 3.3 g/dL (3.4-5.0); Anion Gap 6 mmol/L (6-16); Blood Urea Nitrogen 30 mg/dL (8-24); CO2, Blood 24 mmol/L (21-32); Calcium, Blood 8.5 mg/dL (8.5-10.1); Chloride, Blood 111 mmol/L (98-108); Glomerular Filtration Rate 46 (60-); Glucose, Blood 90 mg/dL (70-99); Phosphorus, Blood 2.6 mg/dL (2.5-4.9); Potassium, Blood 5.1 mmol/L (3.5-5.5); Sodium, Blood 141 mmol/L (136-145)
== END 2018-04-13 19:00 | disposition home or self-care (01) | DRG 304 ==
LOC: DELPENDDIS → ER 14:39 → MEDS 17:40 → ENPENDDIS 04-12 09:30 → MEDS 04-13 13:05
PROVIDERS: Internal Medicine; Internal Medicine Nephrology; Nurse Practitioner Acute Care; Physician Assistant
DX: I16.0 Hypertensive urgency (principal); N17.0 Acute kidney failure with tubular necrosis; E87.2 Acidosis; M19.90 Unspecified osteoarthritis, unspecified site; Z87.891 Personal history of nicotine dependence; I25.2 Old myocardial infarction; K58.9 Irritable bowel syndrome, unspecified; K27.9 Peptic ulcer, site unspecified, unspecified as acute or chronic, without hemorrhage or perforation; M79.7 Fibromyalgia; K21.9 Gastro-esophageal reflux disease without esophagitis; I25.10 Atherosclerotic heart disease of native coronary artery without angina pectoris; Z95.5 Presence of coronary angioplasty implant and graft; E78.5 Hyperlipidemia, unspecified; M06.9 Rheumatoid arthritis, unspecified; D50.9 Iron deficiency anemia, unspecified; Z66 Do not resuscitate; Z88.8 Allergy status to other drugs, medicaments and biological substances; N18.9 Chronic kidney disease, unspecified; F32.9 Major depressive disorder, single episode, unspecified; E87.5 Hyperkalemia; E86.9 Volume depletion, unspecified; R33.9 Retention of urine, unspecified; I48.2 Chronic atrial fibrillation; I12.9 Hypertensive chronic kidney disease with stage 1 through stage 4 chronic kidney disease, or unspecified chronic kidney disease
CPT/HCPCS: 36415; 51702; 71045; 71046; 76770; 80048; 80053; 80069; 80076; 81001; 82550; 82607; 82728; 82746; 83540; 83550; 83735; 83880; 84443; 84484; 84550; 85014; 85018; 85025; 85610; 85730; 93005; 93010; 96361; 96374; 96375; 96376; 97110; 97116; 97162; 97165; 97530; 97535; 99285-25; G0378; G8978; G8979; G8987; G8988; G8989; J0360; J0881; J1885; J2405; J3010; J7030; J7060

== ENCOUNTER 2018-04-14 04:28 | Emergency (ER) | payer MEDICARE ==
[~2018-04-14] VITALS: Ht 160 cm; Wt 59.0 kg
[~2018-04-14 04:28] MED LIST changes: +ALLERGY RELIEF10 MG PO; +HEARTBURN RELI150 M1 PO; -ISOMON20 PO; +Isosorbide Mono60 MG PO; +SODBIC650 PO; +TAMS.4ER PO
[2018-04-14 05:29] LABS: BASOPHILS ABSOLUTE AUTO 0.02 K/mm3 (0.00-0.23); BASOPHILS PERCENT AUTO 0 % (0-2); EOSINOPHILS ABSOLUTE AUTO 0.15 K/mm3 (0.00-0.68); EOSINOPHILS PERCENT AUTO 2 % (0-6); Hematocrit 36.5 % (33.0-51.0); Hemoglobin 12.1 g/dL (11.5-16.0); IMMATURE GRAN ABSOLUTE AUTO 0.03 K/mm3 (0.00-0.10); IMMATURE GRAN PERCENT AUTO 0 % (0-1); LYMPHOCYTES ABSOLUTE AUTO 1.67 K/mm3 (0.84-5.20); LYMPHOCYTES PERCENT AUTO 25 % (21-46); MONOCYTES ABSOLUTE AUTO 0.63 K/mm3 (0.16-1.47); MONOCYTES PERCENT AUTO 9 % (4-13); Mean Corpuscular HGB 29.5 pg (26.0-34.0); Mean Corpuscular HGB Conc 33.2 g/dL (31.5-36.5); Mean Platelet Volume 9.3 fL (9.1-12.4); NEUTROPHILS ABSOLUTE AUTO 4.19 K/mm3 (1.96-9.15); NEUTROPHILS PERCENT AUTO 63 % (41-73); Platelet Count 186 K/mm3 (150-400); RDW Standard Deviation 45.3 fL (35.1-46.3); White Blood Cell Count 6.69 K/mm3 (4.00-11.30)
[2018-04-14 05:31] LABS: Mean Corpuscular Volume 89 fL (80-100)
[2018-04-14 05:45] LABS: Albumin/Globulin Ratio 0.9 (0.8-1.8); Bilirubin, Total 0.4 mg/dL (0.1-1.0); Bun/Creatinine Ratio 20.2 (12.0-20.0); Calcium, Blood 9.3 mg/dL (8.5-10.1); Creatinine, Blood 1.09 mg/dL (0.40-1.00); Globulin, Blood 4.5 g/dL (2.2-4.0); Potassium, Blood 4.8 mmol/L (3.5-5.5); Total Protein, Blood 8.5 g/dL (6.4-8.2)
[2018-04-18] MEDS ORDERED: ELIQUIS2.5 MG PO (10:31)
== END 2018-04-14 09:07 | disposition home or self-care (01) ==
LOC: ER 04:28
PROVIDERS: Emergency Medicine
DX: M79.1 Myalgia (principal); G89.29 Other chronic pain; I25.2 Old myocardial infarction; Z91.018 Allergy to other foods; Z91.011 Allergy to milk products; Z88.0 Allergy status to penicillin; Z88.2 Allergy status to sulfonamides; Z88.8 Allergy status to other drugs, medicaments and biological substances; Z88.6 Allergy status to analgesic agent; Z79.899 Other long term (current) drug therapy; Z79.51 Long term (current) use of inhaled steroids; Z87.891 Personal history of nicotine dependence
CPT/HCPCS: 36415; 80053; 82550; 85025; 99284

== ENCOUNTER → 2018-08-09 | Outpatient (CLI) | payer MEDICARE ==
[~2018-08-09] MED LIST changes: +BUSP10 PO; +CLOP75 PO; +DOCU100 PO; +HYOS.125 SL; +LIDOCAINE PAIN1 EACH; +LISI5; +METO5A PO
[2018-08-09 11:22] LABS: Bilirubin, Urine Neg (Neg); Blood, Urine 1+ (Neg); Glucose Qualitative, Urine Neg (Neg); Ketones, Urine Neg (Neg); Leukocyte Esterase, Urine 2+ (Neg); Nitrite, Urine Neg (Neg); Protein, Urine 2+ (Neg); Urobilinogen, Urine NORM (Normal)
[2018-08-09 12:01] LABS: Appearance, Urine Clear (Clear); Color, Urine Yellow (P-Yellow)
[2018-08-09 12:03] LABS: Red Blood Cells, Urine 0-2 /hpf (0-2)
[2018-08-09 12:04] LABS: Bacteria Mod /hpf; Squamous Epithelial Cells Mod /hpf (Few); Transitional Epithelial Cells Few /hpf (0-Rare)
== END | disposition home or self-care (01) ==
LOC: LAB 08:00 → LAB SHORT 08:00
PROVIDERS: Physician Assistant
DX: N39.0 Urinary tract infection, site not specified (principal)
CPT/HCPCS: 81001; 87086

== ENCOUNTER 2018-08-18 16:35 | Inpatient (IN) | payer MEDICARE ==
[~2018-08-18] VITALS: Ht 152.4 cm; Wt 46.4 kg
[~2018-08-18 16:35] MED LIST changes: -BUSP10 PO; -DOCU100 PO
[2018-08-18 17:03] LABS: Source, Urine Clean Catch
[2018-08-18 17:07] LABS: Appearance, Urine Clear (Clear); Bilirubin, Urine Neg (Neg); Blood, Urine 2+ (Neg); Color, Urine Yellow (P-Yellow); Glucose Qualitative, Urine Neg (Neg); Ketones, Urine Neg (Neg); Leukocyte Esterase, Urine 2+ (Neg); Nitrite, Urine Neg (Neg); Protein, Urine 2+ (Neg); Urobilinogen, Urine NORM (Normal); pH, Urine 6.5 (5.0-8.0)
[2018-08-18 17:19] LABS: Bacteria Rare /hpf; Squamous Epithelial Cells Few /hpf (Few)
[2018-08-18] MEDS ORDERED: BUSP10 PO (17:53)
--- NOTE | 2018-08-19 03:48 | NUR ---
SHIFT SUMMARY PT RESTING QUIETLY HF, DURING SHIFT REPORT. NEW ADMIT, JUST PRIOR TO START OF SHIFT FOR ACUTE ON CHRONIC KIDNEY FAILURE AND POSSIBLE UTI. PT FROM [facility]. RECEIVED URETHRAL DILATIONS Q3 MONTHS; DONE LAST PRIOR TO COMING TO ER ON . PT UP TO BSC FREQUENTLY, VOIDING ONLY VERY SM AMTS. PER SHIFT REPORT, PVR ONLY 13cc. NO RETENTION NOTED, JUST SPASMS. RENAL US FOR THIS AM. PT MEDICATED PER EMAR AT START OF NOC SHIFT FOR C/O PAIN "ALL OVER". HX OF RA AND FIBROMYALGIA. PT THIN AND FRAIL; DECLINED ANYTHING TO EAT. PT HAS RESTED WELL THRU OUT THE NIGHT. CALL LT IN REACH.
--- NOTE | 2018-08-19 05:12 | NUR ---
PT AWAKE AND UP TO BSC THIS AM. VOIDING ONLY 100cc. BLADDER SCAN DONE PER ORDERS; 280cc. IVF'S STOPPED PER ORDERS. PT REPOSITIONED WHEN FINISHED. CALL LT IN REACH.
[2018-08-19 05:24] LABS: Hematocrit 33.1 % (33.0-51.0); Hemoglobin 10.6 g/dL (11.5-16.0); Mean Corpuscular HGB 29.8 pg (26.0-34.0); Mean Platelet Volume 9.5 fL (9.1-12.4); Platelet Count 202 K/mm3 (150-400); RDW Coefficient Variation 13.5 % (11.7-14.2); RDW Standard Deviation 46.4 fL (35.1-46.3); Red Blood Cell Count 3.56 M/mm3 (3.80-5.20); White Blood Cell Count 4.34 K/mm3 (4.00-11.30)
[2018-08-19 05:38] LABS: Mean Corpuscular Volume 93 fL (80-100)
[2018-08-19 05:45] LABS: Albumin, Blood 3.6 g/dL (3.4-5.0); Anion Gap 7 mmol/L (6-16); Blood Urea Nitrogen 48 mg/dL (8-24); Bun/Creatinine Ratio 16.2 (12.0-20.0); CO2, Blood 27 mmol/L (21-32); Calcium, Blood 8.2 mg/dL (8.5-10.1); Chloride, Blood 104 mmol/L (98-108); Creatinine, Blood 2.97 mg/dL (0.40-1.00); Glomerular Filtration Rate 16 (60-); Glucose, Blood 90 mg/dL (70-99); Phosphorus, Blood 3.5 mg/dL (2.5-4.9); Potassium, Blood 4.2 mmol/L (3.5-5.5); Sodium, Blood 138 mmol/L (136-145)
--- NOTE | 2018-08-19 06:19 | NUR ---
PT'S BACKEND DEVELOPER CALLED AT 2044 LAST NIGHT, REQUESTING ADMITTING DX; [phone]
--- NOTE | 2018-08-19 16:07 | NUR ---
PT A/OX3, PLEASANT AND COOPERATIVE, THE PT IS MILDLY ANXIOUS, APPEARS TO BE HER BASE LINE, THE PT IS A 1-2 PERSON ASSIST UP TO THE BSC, WEAK AND SHACKEY ON HER FEET, THE PT APPEARS TO BE BREATHING EASILY AT REST SOB WITH EXCERTION, THE PT WAS MEDICATED FOR PAIN WITH TYLENOL X2 TODAY, PT WAS UP FREQUANTLY TO URINATE SMALL AMOUNTS AT A TIME, CALL LIGHT IN REACH, BED ALARM ON,BED IN THE LOW POSITION
--- NOTE | 2018-08-20 03:25 | NUR ---
SHIFT SUMMARY NO ACUTE CHANGES TO PRESENT THIS SHIFT. PT HAS RESTED BETTER TONIGHT THAN FIRST NIGHT. NOT UP TO BSC NEAR MUCH. IVF'S COMPLETE WELL. NO C/O OF PAIN OR REQUEST FOR PAIN MEDICATION. DENIED NAUSEA. N/T IN FEET. REPORTED NO BM FOR AT LEAST 2 DAYS. FLAT AFFECT. CALLS APPROPRIATELY WHEN NEEDING ASSIST. CALL LT IN REACH.
[2018-08-20 05:45] LABS: Bun/Creatinine Ratio 18.5 (12.0-20.0); Calcium, Blood 8.5 mg/dL (8.5-10.1); Creatinine, Blood 1.78 mg/dL (0.40-1.00); Potassium, Blood 4.2 mmol/L (3.5-5.5)
--- NOTE | 2018-08-20 15:19 | NUR ---
DR HAYWOOD NOTIFIED OF BP AT THIS TIME. NO NEW ORDERS AT THIS TIME
[2018-08-20] MEDS ORDERED: DOCU100 PO (15:34)
--- NOTE | 2018-08-20 17:40 | NUR ---
SHIFT SUMMARY/DISCHARGE SUMMARY PT DISCHARGED HOME TO [facility]. PT LEFT ROOM JUST PRIOR TO THIS NOTE. PT LEFT ROOM VIA WHEELCHAIR WITH TRANSPORT SERVICE. VSS THOUGH HYPERTENSIVE, DR AWARE. NO ACUTE CHANGES THIS SHIFT. PT UP TO BSC WITH ASSISTANCE EVERY 30- 45 MIN AND VOIDING 50ML AT A TIME. REPORT CALLED TO DANIA AT [facility] AT 1740.
== END 2018-08-20 17:35 | disposition home or self-care (01) | DRG 683 ==
LOC: ER 16:35 → MEDS 18:05 → ENPENDDIS 08-20 14:47 → EDPENDDIS 08-20 14:47 → MEDS 08-20 17:35
PROVIDERS: Emergency Medicine; Hospitalist; Nurse Practitioner Acute Care; ADMIT Internal Medicine
DX: N17.9 Acute kidney failure, unspecified (principal); I13.0 Hypertensive heart and chronic kidney disease with heart failure and stage 1 through stage 4 chronic kidney disease, or unspecified chronic kidney disease; I50.32 Chronic diastolic (congestive) heart failure; I25.10 Atherosclerotic heart disease of native coronary artery without angina pectoris; N18.9 Chronic kidney disease, unspecified; K21.9 Gastro-esophageal reflux disease without esophagitis; F32.9 Major depressive disorder, single episode, unspecified; Z88.6 Allergy status to analgesic agent; Z88.5 Allergy status to narcotic agent; Z88.0 Allergy status to penicillin; Z88.2 Allergy status to sulfonamides; Z88.8 Allergy status to other drugs, medicaments and biological substances; Z91.018 Allergy to other foods; Z86.718 Personal history of other venous thrombosis and embolism
CPT/HCPCS: 36415; 51798; 76770; 80048; 80069; 81001; 82570; 83735; 84540; 84550; 85027; 87086; 99284; J7030

== ENCOUNTER 2018-10-18 06:34 | Emergency (ER) | payer MEDICARE, OTHER ==
[~2018-10-18] VITALS: Ht 152.4 cm; Wt 49.9 kg
[~2018-10-18 06:34] MED LIST changes: +BUSP10 PO; +DOCU100 PO
[2018-10-18] MEDS ORDERED: ASPERCREME1 EACH TP (06:54)
[2018-10-18] MEDS ORDERED: CETI5 PO (06:55)
[2018-10-18] MEDS ORDERED: Protonix40 MG PO (06:55)
[2018-10-18] MEDS ORDERED: Hydrocodone-Ap1 EA23 PO (08:21)
== END 2018-10-18 09:00 | disposition home or self-care (01) ==
LOC: ER 06:34
DX: S00.83XA Contusion of other part of head, initial encounter (principal); W19.XXXA Unspecified fall, initial encounter; I12.9 Hypertensive chronic kidney disease with stage 1 through stage 4 chronic kidney disease, or unspecified chronic kidney disease; N18.9 Chronic kidney disease, unspecified; F32.9 Major depressive disorder, single episode, unspecified; Z88.0 Allergy status to penicillin; Z88.2 Allergy status to sulfonamides; Z88.5 Allergy status to narcotic agent; Z79.899 Other long term (current) drug therapy; Z91.018 Allergy to other foods; Z88.6 Allergy status to analgesic agent; Z87.891 Personal history of nicotine dependence
CPT/HCPCS: 10160; 99283-25

== ENCOUNTER 2018-10-20 10:56 | Emergency (ER) | payer MEDICARE, OTHER ==
[~2018-10-20] VITALS: Ht 152.4 cm; Wt 54.4 kg
[~2018-10-20 10:56] MED LIST changes: +ASPERCREME1 EACH TP; +CETI5 PO; +Hydrocodone-Ap1 EA23 PO
[2018-10-20] MEDS ORDERED: LEVSOD75 PO (11:17)
[2018-10-20] MEDS ORDERED: Isosorbide Mono30 MG PO (11:17)
[2018-10-20] MEDS ORDERED: CHOL10002 PO (11:18)
[2018-10-20] MEDS ORDERED: LISI5 PO (11:18)
[2018-10-20] MEDS ORDERED: TRAZ50 PO (11:18)
[2018-10-20] MEDS ORDERED: HYDR1TAB94 PO (12:29)
== END 2018-10-20 16:10 | disposition home or self-care (01) ==
LOC: ER 10:56
DX: M79.81 Nontraumatic hematoma of soft tissue (principal); I12.9 Hypertensive chronic kidney disease with stage 1 through stage 4 chronic kidney disease, or unspecified chronic kidney disease; N18.9 Chronic kidney disease, unspecified; I25.2 Old myocardial infarction; M19.90 Unspecified osteoarthritis, unspecified site; F32.9 Major depressive disorder, single episode, unspecified; M79.10 Myalgia, unspecified site; Z88.2 Allergy status to sulfonamides; Z88.0 Allergy status to penicillin; Z88.5 Allergy status to narcotic agent; Z88.8 Allergy status to other drugs, medicaments and biological substances; Z91.030 Bee allergy status; Z88.6 Allergy status to analgesic agent; Z91.018 Allergy to other foods; Z79.899 Other long term (current) drug therapy
CPT/HCPCS: 10140; 82947; 99283-25

== ENCOUNTER 2018-11-01 20:12 | Emergency (ER) | payer MEDICARE, OTHER ==
[~2018-11-01] VITALS: Ht 152.4 cm; Wt 45.4 kg
[~2018-11-01 20:12] MED LIST changes: +CHOL10002 PO; +Isosorbide Mono30 MG PO
[2018-11-01] MEDS ORDERED: Ultram50 MG PO (23:43)
== END 2018-11-02 00:35 | disposition home or self-care (01) ==
LOC: ER 20:12
DX: R51 Headache (principal); Z88.0 Allergy status to penicillin; Z88.2 Allergy status to sulfonamides; Z88.8 Allergy status to other drugs, medicaments and biological substances; Z88.5 Allergy status to narcotic agent; Z91.018 Allergy to other foods; Z88.6 Allergy status to analgesic agent; Z79.899 Other long term (current) drug therapy; I25.2 Old myocardial infarction
CPT/HCPCS: 99284; A9270-GY

== ENCOUNTER → 2018-12-31 | Outpatient (CLI) | payer MEDICARE, OTHER ==
[~2018-12-31] MED LIST changes: +Ultram50 MG PO
== END ==
LOC: LAB 19:07 → LAB SHORT 19:07
DX: L02.32 Furuncle of buttock (principal)
CPT/HCPCS: 87070; 87075; 87077; 87186; 87205

== ENCOUNTER → 2019-02-06 | Outpatient (CLI) | payer MEDICARE, OTHER ==
[~2019-02-06] MED LIST changes: +AMLO10 PO; +Anti-Diarrheal2 MG PO; +CEPH500 PO; +EUTHYROX75 MCG PO; +FLUO10 PO; +METO50ER PO; +Metoclopramide H5 MG PO; +Triamcinolone A15 G4
[2019-02-07 11:14] LABS: Creatinine, Urine Random 41.9 mg/dL (27.00-270.00)
== END | disposition home or self-care (01) ==
LOC: LAB SHORT 10:31 → LAB 10:31
PROVIDERS: Internal Medicine
DX: N17.9 Acute kidney failure, unspecified (principal)
CPT/HCPCS: 82570; 84156

== ENCOUNTER → 2019-03-30 | Outpatient (CLI) | payer MEDICARE, OTHER ==
[2019-03-31 13:56] LABS: Appearance, Urine Clear (Clear); Bilirubin, Urine Neg (Neg); Blood, Urine Neg (Neg); Color, Urine Yellow (P-Yellow); Glucose Qualitative, Urine Neg (Neg); Ketones, Urine Neg (Neg); Leukocyte Esterase, Urine 1+ (Neg); Nitrite, Urine Neg (Neg); Protein, Urine 1+ (Neg); Specific Gravity, Urine 1.015 (1.003-1.022); Urobilinogen, Urine NORM (Normal)
[2019-03-31 14:10] LABS: Red Blood Cells, Urine Rare /hpf (0-2); Squamous Epithelial Cells Few /hpf (Few); White Blood Cells, Urine 0-2 /hpf (0-5)
[2019-03-31 14:11] LABS: Bacteria Many /hpf
== END | disposition home or self-care (01) ==
LOC: LAB 13:46 → LAB SHORT 13:46
PROVIDERS: Physician Assistant
DX: N39.0 Urinary tract infection, site not specified (principal)
CPT/HCPCS: 81001; 87077; 87086; 87186

== ENCOUNTER → 2019-04-04 | Outpatient (CLI) | payer MEDICARE, OTHER ==
[2019-04-04 15:33] LABS: Adenovirus F 40/41 Not Detected (NOT DETECT); Astrovirus Not Detected (NOT DETECT); Campylobacter Sp Not Detected (NOT DETECT); Cryptosporidium Not Detected (NOT DETECT); Cyclospora Cayetanensis Not Detected (NOT DETECT); E. Coli O157 Not Detected (NOT DETECT); Entamoeba Histolytica Not Detected (NOT DETECT); Enteroaggregative E. coli-EAEC Not Detected (NOT DETECT); Enteropathogenic E. coli-EPEC Not Detected (NOT DETECT); Enterotoxigenic E. coli-ETEC Not Detected (NOT DETECT); Giardia Lamblia Not Detected (NOT DETECT); Norovirus GI/GII Not Detected (NOT DETECT); Plesiomonas Shigelloides Not Detected (NOT DETECT); Rotavirus A Not Detected (NOT DETECT); Salmonella Sp Not Detected (NOT DETECT); Sapovirus Not Detected (NOT DETECT); Shiga Toxin-prod E. coli-STEC Not Detected (NOT DETECT); Shigella/Enteroin E. coli-EIEC Not Detected (NOT DETECT); Vibrio Cholerae Not Detected (NOT DETECT); Vibrio Sp Not Detected (NOT DETECT); Yersinia Enterocolitica Not Detected (NOT DETECT)
== END | disposition home or self-care (01) ==
LOC: LAB SHORT 13:22 → LAB 13:22 → LAB FUT 03-27 11:20
PROVIDERS: Physician Assistant
DX: R19.7 Diarrhea, unspecified (principal)
CPT/HCPCS: 0097U

== ENCOUNTER 2019-04-09 17:34 | Emergency (ER) | payer MEDICARE, OTHER ==
[~2019-04-09] VITALS: Ht 157.5 cm; Wt 40.8 kg
[~2019-04-09 17:34] MED LIST changes: -AMLO10 PO; -Anti-Diarrheal2 MG PO; -CEPH500 PO; -EUTHYROX75 MCG PO; -FLUO10 PO; -METO50ER PO; -Metoclopramide H5 MG PO; -Triamcinolone A15 G4
[2019-04-09] MEDS ORDERED: ACET500 PO (18:11)
[2019-04-09] MEDS ORDERED: AMLO10 PO (18:11)
[2019-04-09] MEDS ORDERED: ATOR40TA PO (18:12)
[2019-04-09] MEDS ORDERED: ELIQUIS2.5 MG PO (18:12)
[2019-04-09] MEDS ORDERED: CEPH500 PO (18:12)
[2019-04-09] MEDS ORDERED: CLOP75 PO (18:12)
[2019-04-09] MEDS ORDERED: CITA20 PO (18:12)
[2019-04-09] MEDS ORDERED: EUTHYROX75 MCG PO (18:13)
[2019-04-09] MEDS ORDERED: Isosorbide Mono30 MG PO (18:13)
[2019-04-09] MEDS ORDERED: Anti-Diarrheal2 MG PO (18:28)
[2019-04-09] MEDS ORDERED: Metoclopramide H5 MG PO (18:28)
[2019-04-09] MEDS ORDERED: METO50ER PO (18:29)
[2019-04-09] MEDS ORDERED: TRAZ100 PO (18:30)
[2019-04-09] MEDS ORDERED: PANT40 PO (18:30)
[2019-04-09] MEDS ORDERED: SODBIC650 PO (18:30)
[2019-04-09] MEDS ORDERED: Triamcinolone A15 G4 (18:31)
[2019-05-31] MEDS ORDERED: FLUO10 PO (19:19)
== END 2019-04-09 20:04 | disposition home or self-care (01) ==
LOC: ER 17:34
DX: S09.90XA Unspecified injury of head, initial encounter (principal); S60.410A Abrasion of right index finger, initial encounter; I25.2 Old myocardial infarction; Z91.02 Food additives allergy status; Z88.0 Allergy status to penicillin; Z88.2 Allergy status to sulfonamides; Z88.5 Allergy status to narcotic agent; Z88.8 Allergy status to other drugs, medicaments and biological substances; Z91.018 Allergy to other foods; Z88.6 Allergy status to analgesic agent; Z79.899 Other long term (current) drug therapy; Z79.02 Long term (current) use of antithrombotics/antiplatelets; W18.30XA Fall on same level, unspecified, initial encounter
CPT/HCPCS: 70450; 73120; 99284-25; J3430

== ENCOUNTER → 2019-06-13 | Outpatient (CLI) | payer MEDICARE, OTHER ==
[~2019-06-13] MED LIST changes: +AMLO10 PO; +Anti-Diarrheal2 MG PO; +CEPH500 PO; +EUTHYROX75 MCG PO; +FLUO10 PO; +METO50ER PO; +Metoclopramide H5 MG PO; +Triamcinolone A15 G4
[2019-06-13 14:24] LABS: Bilirubin, Urine Neg (Neg); Blood, Urine 2+ (Neg); Glucose Qualitative, Urine Neg (Neg); Ketones, Urine Neg (Neg); Leukocyte Esterase, Urine 3+ (Neg); Nitrite, Urine Pos (Neg); Protein, Urine 2+ (Neg); Urobilinogen, Urine NORM (Normal)
[2019-06-13 14:41] LABS: Appearance, Urine Hazy (Clear); Color, Urine Yellow (P-Yellow)
[2019-06-13 14:42] LABS: White Blood Cells, Urine TNTC /hpf (0-5)
[2019-06-13 14:43] LABS: Bacteria Many /hpf; Squamous Epithelial Cells Rare /hpf (Few); Transitional Epithelial Cells Few /hpf (0-Rare)
== END | disposition home or self-care (01) ==
LOC: LAB SHORT 08:00 → LAB 08:00
PROVIDERS: Physician Assistant
DX: N39.0 Urinary tract infection, site not specified (principal)
CPT/HCPCS: 81001; 87077; 87086; 87186

== ENCOUNTER → 2019-07-19 | Outpatient (CLI) | payer MEDICARE, OTHER ==
[2019-07-19 15:33] LABS: Protein, Urine Random 42.6 mg/dL (0.0-11.9)
== END | disposition home or self-care (01) ==
LOC: LAB 11:39 → LAB SHORT 11:39
PROVIDERS: Internal Medicine
DX: E87.5 Hyperkalemia (principal); N39.0 Urinary tract infection, site not specified; D64.9 Anemia, unspecified
CPT/HCPCS: 82570; 84156

== ENCOUNTER 2019-09-22 10:16 | Emergency (ER) | payer MEDICARE, OTHER ==
[~2019-09-22] VITALS: Ht 152.4 cm; Wt 63.5 kg
[2019-09-22] MEDS ORDERED: RISP.5 PO (10:38)
[2019-09-22] MEDS ORDERED: Triamcinolone A15 G3 (10:40)
[2019-09-22 10:54] LABS: BASOPHILS ABSOLUTE AUTO 0.02 K/mm3 (0.00-0.23); BASOPHILS PERCENT AUTO 0 % (0-2); EOSINOPHILS ABSOLUTE AUTO 0.21 K/mm3 (0.00-0.68); EOSINOPHILS PERCENT AUTO 2 % (0-6); Hemoglobin 9.3 g/dL (11.5-16.0); IMMATURE GRAN ABSOLUTE AUTO 0.04 K/mm3 (0.00-0.10); IMMATURE GRAN PERCENT AUTO 1 % (0-1); LYMPHOCYTES ABSOLUTE AUTO 1.26 K/mm3 (0.84-5.20); LYMPHOCYTES PERCENT AUTO 14 % (21-46); MONOCYTES ABSOLUTE AUTO 0.74 K/mm3 (0.16-1.47); MONOCYTES PERCENT AUTO 8 % (4-13); Mean Corpuscular HGB 28.5 pg (26.0-34.0); Mean Corpuscular HGB Conc 32.1 g/dL (31.5-36.5); Mean Corpuscular Volume 89 fL (80-100); Mean Platelet Volume 9.3 fL (9.1-12.4); NEUTROPHILS ABSOLUTE AUTO 6.57 K/mm3 (1.96-9.15); NEUTROPHILS PERCENT AUTO 74 % (41-73); Platelet Count 226 K/mm3 (150-400); RDW Coefficient Variation 13.4 % (11.7-14.2); Red Blood Cell Count 3.26 M/mm3 (3.80-5.20); White Blood Cell Count 8.84 K/mm3 (4.00-11.30)
[2019-09-22 11:27] LABS: Alanine Aminotransfer (ALT/SGP 9 U/L (12-78); Albumin, Blood 3.4 g/dL (3.4-5.0); Albumin/Globulin Ratio 0.8 (0.8-1.8); Alk Phos 61 U/L (50-136); Anion Gap 7 mmol/L (6-16); Bilirubin, Total 0.3 mg/dL (0.1-1.0); Blood Urea Nitrogen 24 mg/dL (8-24); Bun/Creatinine Ratio 17.4 (12.0-20.0); CO2, Blood 26 mmol/L (21-32); Calcium, Blood 9.2 mg/dL (8.5-10.1); Chloride, Blood 106 mmol/L (98-108); Creatinine, Blood 1.38 mg/dL (0.40-1.00); Glomerular Filtration Rate 39 (60-); Glucose, Blood 125 mg/dL (70-99); Potassium, Blood 4.4 mmol/L (3.5-5.5); Sodium, Blood 139 mmol/L (136-145); Total Protein, Blood 7.4 g/dL (6.4-8.2); Troponin I <0.015 ng/mL (0.000-0.040)
[2019-09-22 11:32] LABS: Aspartate Aminotrans (AST/SGOT 8 U/L (12-37)
[2019-09-22 13:14] LABS: Source, Urine Clean Catch
[2019-09-22 13:25] LABS: Bilirubin, Urine Neg (Neg); Blood, Urine 1+ (Neg); Glucose Qualitative, Urine Neg (Neg); Ketones, Urine Neg (Neg); Leukocyte Esterase, Urine 1+ (Neg); Nitrite, Urine Neg (Neg); Protein, Urine 2+ (Neg); Urobilinogen, Urine NORM (Normal)
[2019-09-22 13:55] LABS: Appearance, Urine Clear (Clear); Color, Urine Yellow (P-Yellow)
[2019-09-22 13:57] LABS: Bacteria Rare /hpf; Red Blood Cells, Urine 0-2 /hpf (0-2); Squamous Epithelial Cells Rare /hpf (Few); White Blood Cells, Urine 0-2 /hpf (0-5)
== END 2019-09-22 15:00 | disposition home or self-care (01) ==
LOC: ER 10:16
PROVIDERS: Emergency Medicine
DX: R07.9 Chest pain, unspecified (principal); R11.0 Nausea; I12.9 Hypertensive chronic kidney disease with stage 1 through stage 4 chronic kidney disease, or unspecified chronic kidney disease; N18.9 Chronic kidney disease, unspecified; I51.89 Other ill-defined heart diseases; E03.9 Hypothyroidism, unspecified; F03.90 Unspecified dementia, unspecified severity, without behavioral disturbance, psychotic disturbance, mood disturbance, and anxiety; Z86.718 Personal history of other venous thrombosis and embolism; Z88.0 Allergy status to penicillin; Z88.2 Allergy status to sulfonamides; Z88.5 Allergy status to narcotic agent; Z88.8 Allergy status to other drugs, medicaments and biological substances; Z91.018 Allergy to other foods; Z88.6 Allergy status to analgesic agent; Z79.899 Other long term (current) drug therapy; Z87.891 Personal history of nicotine dependence
CPT/HCPCS: 36415; 71046; 80053; 81001; 84484; 85025; 87077; 87086; 87186; 93005; 93010; 99285-25

== ENCOUNTER → 2019-10-16 | Outpatient (CLI) | payer MEDICARE, OTHER ==
[~2019-10-16] MED LIST changes: +RISP.5 PO; +Triamcinolone A15 G3
[2019-10-17 17:26] LABS: Appearance, Urine Clear (Clear); Bilirubin, Urine Neg (Neg); Blood, Urine Neg (Neg); Color, Urine Yellow (P-Yellow); Glucose Qualitative, Urine Neg (Neg); Ketones, Urine Neg (Neg); Leukocyte Esterase, Urine Neg (Neg); Nitrite, Urine Neg (Neg); Protein, Urine 2+ (Neg); Urobilinogen, Urine NORM (Normal)
[2019-10-17 17:27] LABS: Bacteria Few /hpf; Red Blood Cells, Urine 0-2 /hpf (0-2); Squamous Epithelial Cells Few /hpf (Few); White Blood Cells, Urine 0-2 /hpf (0-5)
== END | disposition home or self-care (01) ==
LOC: LAB 13:28 → LAB SHORT 13:28
PROVIDERS: Physician Assistant
DX: N39.0 Urinary tract infection, site not specified (principal)
CPT/HCPCS: 81001

== ENCOUNTER → 2019-11-24 | Outpatient (CLI) | payer MEDICARE, OTHER ==
[2019-11-24 15:07] LABS: Bilirubin, Urine Neg (Neg); Blood, Urine Neg (Neg); Glucose Qualitative, Urine Neg (Neg); Ketones, Urine Neg (Neg); Leukocyte Esterase, Urine 1+ (Neg); Nitrite, Urine Neg (Neg); Protein, Urine 1+ (Neg); Urobilinogen, Urine NORM (Normal); pH, Urine 6.5 (5.0-8.0)
[2019-11-24 16:06] LABS: Appearance, Urine Clear (Clear); Color, Urine Yellow (P-Yellow)
[2019-11-24 16:07] LABS: Bacteria Few /hpf; Red Blood Cells, Urine Not Seen /hpf (0-2); Squamous Epithelial Cells Not Seen /hpf (Few); White Blood Cells, Urine 0-2 /hpf (0-5)
== END | disposition home or self-care (01) ==
LOC: LAB SHORT 12:07 → LAB 12:07
PROVIDERS: Physician Assistant
DX: N39.0 Urinary tract infection, site not specified (principal)
CPT/HCPCS: 81001; 87077; 87086; 87186

== ENCOUNTER → 2020-01-06 | Outpatient (CLI) | payer MEDICARE, OTHER ==
[2020-01-06 20:03] LABS: Bilirubin, Urine Neg (Neg); Blood, Urine 2+ (Neg); Glucose Qualitative, Urine Neg (Neg); Ketones, Urine Neg (Neg); Leukocyte Esterase, Urine 3+ (Neg); Nitrite, Urine Pos (Neg); Protein, Urine 2+ (Neg); Urobilinogen, Urine NORM (Normal)
[2020-01-06 20:15] LABS: Appearance, Urine Hazy (Clear); Color, Urine Yellow (P-Yellow)
[2020-01-06 20:16] LABS: Bacteria Many /hpf; Red Blood Cells, Urine Rare /hpf (0-2); Squamous Epithelial Cells Rare /hpf (Few); White Blood Cells, Urine TNTC /hpf (0-5)
== END | disposition home or self-care (01) ==
LOC: LAB 19:11 → LAB SHORT 19:11
PROVIDERS: Physician Assistant
DX: N39.0 Urinary tract infection, site not specified (principal)
CPT/HCPCS: 81001; 87077; 87086; 87186

== ENCOUNTER → 2020-01-18 | Outpatient (CLI) | payer MEDICARE, OTHER ==
[2020-01-18 18:28] LABS: Hemoglobin 10.2 g/dL (11.5-16.0)
[2020-01-18 18:48] LABS: Albumin, Blood 3.7 g/dL (3.4-5.0); Anion Gap 7 mmol/L (6-16); Blood Urea Nitrogen 32 mg/dL (8-24); Bun/Creatinine Ratio 25.2 (12.0-20.0); CO2, Blood 25 mmol/L (21-32); Calcium, Blood 9.1 mg/dL (8.5-10.1); Chloride, Blood 102 mmol/L (98-108); Creatinine, Blood 1.27 mg/dL (0.40-1.00); Glomerular Filtration Rate 43 (60-); Glucose, Blood 85 mg/dL (70-99); Potassium, Blood 4.4 mmol/L (3.5-5.5); Sodium, Blood 134 mmol/L (136-145)
[2020-01-18 18:54] LABS: Percent Saturation 8.3 % (15.0-50.0)
== END | disposition home or self-care (01) ==
LOC: LAB 15:20 → LAB SHORT 15:20
PROVIDERS: Internal Medicine
DX: E87.5 Hyperkalemia (principal); D64.9 Anemia, unspecified
CPT/HCPCS: 80069; 82728; 83540; 83550; 85014; 85018

== ENCOUNTER → 2020-01-19 | Outpatient (CLI) | payer MEDICARE, OTHER ==
[2020-01-19 20:28] LABS: Creatinine, Urine Random 42.5 mg/dL (27.00-270.00)
== END | disposition home or self-care (01) ==
LOC: LAB SHORT 18:09 → LAB 18:09
PROVIDERS: Internal Medicine
DX: E87.5 Hyperkalemia (principal); N39.0 Urinary tract infection, site not specified
CPT/HCPCS: 82570; 84156

== ENCOUNTER 2020-03-25 08:53 | Emergency (ER) | payer MEDICARE, OTHER ==
[~2020-03-25] VITALS: Ht 152.4 cm; Wt 47.6 kg
[2020-03-25] MEDS ORDERED: FERROUS SULFAT325 M3 PO (09:11)
[2020-03-25] MEDS ORDERED: FIBER-LAX PO (09:12)
[2020-03-25] MEDS ORDERED: FLUT.05NI (09:15)
[2020-03-25] MEDS ORDERED: QUET25 PO (09:16)
== END 2020-03-25 10:11 | disposition home or self-care (01) ==
LOC: ER 08:53
DX: R04.0 Epistaxis (principal); Z79.02 Long term (current) use of antithrombotics/antiplatelets; Z88.0 Allergy status to penicillin; Z88.2 Allergy status to sulfonamides; Z88.8 Allergy status to other drugs, medicaments and biological substances; Z88.5 Allergy status to narcotic agent; Z91.02 Food additives allergy status; Z88.6 Allergy status to analgesic agent; Z79.01 Long term (current) use of anticoagulants; Z91.018 Allergy to other foods; Z79.899 Other long term (current) drug therapy
CPT/HCPCS: 99283

== ENCOUNTER → 2020-06-13 | Outpatient (CLI) | payer MEDICARE, OTHER ==
[~2020-06-13] MED LIST changes: +FERROUS SULFAT325 M3 PO; +FIBER-LAX PO; +QUET25 PO
[2020-06-13 12:23] LABS: BASOPHILS ABSOLUTE AUTO 0.03 K/mm3 (0.00-0.23); BASOPHILS PERCENT AUTO 0 % (0-2); EOSINOPHILS ABSOLUTE AUTO 0.28 K/mm3 (0.00-0.68); EOSINOPHILS PERCENT AUTO 3 % (0-6); Hematocrit 39.9 % (33.0-51.0); Hemoglobin 12.9 g/dL (11.5-16.0); IMMATURE GRAN ABSOLUTE AUTO 0.03 K/mm3 (0.00-0.10); IMMATURE GRAN PERCENT AUTO 0 % (0-1); LYMPHOCYTES ABSOLUTE AUTO 1.88 K/mm3 (0.84-5.20); LYMPHOCYTES PERCENT AUTO 20 % (21-46); MONOCYTES ABSOLUTE AUTO 0.72 K/mm3 (0.16-1.47); MONOCYTES PERCENT AUTO 8 % (4-13); Mean Corpuscular HGB 29.6 pg (26.0-34.0); Mean Corpuscular HGB Conc 32.3 g/dL (31.5-36.5); Mean Corpuscular Volume 92 fL (80-100); Mean Platelet Volume 9.2 fL (9.1-12.4); NEUTROPHILS ABSOLUTE AUTO 6.64 K/mm3 (1.96-9.15); NEUTROPHILS PERCENT AUTO 69 % (41-73); Platelet Count 338 K/mm3 (150-400); RDW Coefficient Variation 13.6 % (11.7-14.2); RDW Standard Deviation 45.9 fL (35.1-46.3); Red Blood Cell Count 4.36 M/mm3 (3.80-5.20); White Blood Cell Count 9.58 K/mm3 (4.00-11.30)
[2020-06-13 12:33] LABS: Percent Saturation 21.3 % (15.0-50.0)
[2020-06-13 12:48] LABS: Cholesterol 107 mg/dL (50-200); HDL Cholesterol 53 mg/dL (>39); LDL/HDL RATIO 0.3; Low Density Lipoprotein Chol 15 mg/dL (0-110); Triglycerides 196 mg/dL (30-160); Very Low Density Lipoprot Chol 39 mg/dL (6-32)
== END | disposition home or self-care (01) ==
LOC: LAB 10:21 → LAB SHORT 10:21
PROVIDERS: Physician Assistant
DX: E78.5 Hyperlipidemia, unspecified (principal); E03.9 Hypothyroidism, unspecified; D50.9 Iron deficiency anemia, unspecified
CPT/HCPCS: 36415; 80061; 82728; 83540; 83550; 84443; 85025

== ENCOUNTER → 2020-07-10 | Outpatient (CLI) | payer MEDICARE, OTHER ==
[2020-07-11 07:24] LABS: Appearance, Urine Clear (Clear); Bilirubin, Urine Neg (Neg); Blood, Urine 4+ (Neg); Color, Urine Yellow (P-Yellow); Glucose Qualitative, Urine Neg (Neg); Ketones, Urine Neg (Neg); Leukocyte Esterase, Urine 1+ (Neg); Nitrite, Urine Neg (Neg); Protein, Urine Neg (Neg); Specific Gravity, Urine 1.005 (1.003-1.022); Urobilinogen, Urine NORM (Normal)
[2020-07-11 07:42] LABS: Bacteria Rare /hpf; Red Blood Cells, Urine 0-2 /hpf (0-2); Squamous Epithelial Cells Few /hpf (Few)
[2020-07-11 07:43] LABS: Transitional Epithelial Cells Rare /hpf (0-Rare)
== END | disposition home or self-care (01) ==
LOC: LAB 19:29
PROVIDERS: Physician Assistant
DX: N39.0 Urinary tract infection, site not specified (principal)
CPT/HCPCS: 81001; 87077; 87086; 87186

== ENCOUNTER → 2021-06-17 | Outpatient (CLI) | payer MEDICARE, OTHER ==
[2021-06-17 15:13] LABS: BASOPHILS ABSOLUTE AUTO 0.02 K/mm3 (0.00-0.23); BASOPHILS PERCENT AUTO 0 % (0-2); EOSINOPHILS ABSOLUTE AUTO 0.33 K/mm3 (0.00-0.68); EOSINOPHILS PERCENT AUTO 5 % (0-6); Hematocrit 30.6 % (33.0-51.0); Hemoglobin 9.7 g/dL (11.5-16.0); IMMATURE GRAN ABSOLUTE AUTO 0.02 K/mm3 (0.00-0.10); IMMATURE GRAN PERCENT AUTO 0 % (0-1); LYMPHOCYTES ABSOLUTE AUTO 1.97 K/mm3 (0.84-5.20); LYMPHOCYTES PERCENT AUTO 32 % (21-46); MONOCYTES ABSOLUTE AUTO 0.54 K/mm3 (0.16-1.47); MONOCYTES PERCENT AUTO 9 % (4-13); Mean Corpuscular HGB 26.8 pg (26.0-34.0); Mean Corpuscular HGB Conc 31.7 g/dL (31.5-36.5); Mean Corpuscular Volume 85 fL (80-100); Mean Platelet Volume 9.5 fL (9.1-12.4); NEUTROPHILS ABSOLUTE AUTO 3.34 K/mm3 (1.96-9.15); NEUTROPHILS PERCENT AUTO 54 % (41-73); Platelet Count 338 K/mm3 (150-400); RDW Coefficient Variation 14.4 % (11.7-14.2); Red Blood Cell Count 3.62 M/mm3 (3.80-5.20); White Blood Cell Count 6.22 K/mm3 (4.00-11.30)
[2021-06-17 17:35] LABS: Alanine Aminotransfer (ALT/SGP 20 U/L (12-78); Albumin, Blood 2.7 g/dL (3.4-5.0); Albumin/Globulin Ratio 0.6 (0.8-1.8); Alk Phos 87 U/L (50-136); Anion Gap 5 mmol/L (6-16); Aspartate Aminotrans (AST/SGOT 17 U/L (12-37); Bilirubin, Total 0.1 mg/dL (0.1-1.0); Blood Urea Nitrogen 32 mg/dL (8-24); Bun/Creatinine Ratio 27.8 (12.0-20.0); CHOL/HDL RATIO 2.1; CO2, Blood 30 mmol/L (21-32); Chloride, Blood 101 mmol/L (98-108); Cholesterol 77 mg/dL (50-200); Creatinine, Blood 1.15 mg/dL (0.40-1.00); Globulin, Blood 4.9 g/dL (2.2-4.0); Glomerular Filtration Rate 45 (60-); Glucose, Blood 104 mg/dL (70-99); HDL Cholesterol 36 mg/dL (>39); LDL/HDL RATIO 0.5; Low Density Lipoprotein Chol 18 mg/dL (0-110); Potassium, Blood 4.7 mmol/L (3.5-5.5); Sodium, Blood 136 mmol/L (136-145); Total Protein, Blood 7.6 g/dL (6.4-8.2); Triglycerides 115 mg/dL (30-160); Very Low Density Lipoprot Chol 23 mg/dL (6-32)
== END | disposition home or self-care (01) ==
LOC: LAB SHORT 08:15
PROVIDERS: Physician Assistant
DX: E03.9 Hypothyroidism, unspecified (principal); I10 Essential (primary) hypertension
CPT/HCPCS: 80053; 80061; 84443; 85025

== ENCOUNTER → 2021-10-11 | Outpatient (CLI) | payer MEDICARE, OTHER | END | disposition home or self-care (01) | LOC: LAB SHORT 14:59 | DX: R30.9 Painful micturition, unspecified (principal) | CPT/HCPCS: 87077; 87086; 87186 ==

== ENCOUNTER → 2021-10-25 | Outpatient (CLI) | payer MEDICARE, OTHER ==
[2021-10-25 19:55] LABS: BASOPHILS ABSOLUTE AUTO 0.02 K/mm3 (0.00-0.23); BASOPHILS PERCENT AUTO 0 % (0-2); EOSINOPHILS ABSOLUTE AUTO 0.19 K/mm3 (0.00-0.68); EOSINOPHILS PERCENT AUTO 3 % (0-6); Hematocrit 30.7 % (33.0-51.0); Hemoglobin 9.5 g/dL (11.5-16.0); IMMATURE GRAN ABSOLUTE AUTO 0.02 K/mm3 (0.00-0.10); IMMATURE GRAN PERCENT AUTO 0 % (0-1); LYMPHOCYTES ABSOLUTE AUTO 1.48 K/mm3 (0.84-5.20); LYMPHOCYTES PERCENT AUTO 20 % (21-46); MONOCYTES ABSOLUTE AUTO 0.56 K/mm3 (0.16-1.47); MONOCYTES PERCENT AUTO 7 % (4-13); Mean Corpuscular HGB Conc 30.9 g/dL (31.5-36.5); Mean Corpuscular Volume 78 fL (80-100); Mean Platelet Volume 9.1 fL (9.1-12.4); NEUTROPHILS ABSOLUTE AUTO 5.28 K/mm3 (1.96-9.15); NEUTROPHILS PERCENT AUTO 70 % (41-73); Platelet Count 445 K/mm3 (150-400); RDW Coefficient Variation 16.7 % (11.7-14.2); RDW Standard Deviation 47.8 fL (35.1-46.3); Red Blood Cell Count 3.96 M/mm3 (3.80-5.20); White Blood Cell Count 7.55 K/mm3 (4.00-11.30)
== END ==
LOC: LAB SHORT 18:45
PROVIDERS: Physician Assistant
DX: D64.9 Anemia, unspecified (principal)
CPT/HCPCS: 85025

== ENCOUNTER → 2021-11-21 | Outpatient (CLI) | payer MEDICARE, OTHER | END | disposition home or self-care (01) | LOC: LAB 10:56 → LAB SHORT 10:56 → LAB FUT 11-18 15:35 | DX: R35.0 Frequency of micturition (principal) | CPT/HCPCS: 87077; 87086; 87186 ==

== ENCOUNTER 2022-07-26 11:27 | Inpatient (IN) | payer MEDICARE, OTHER ==
[~2022-07-26] VITALS: Ht 147.3 cm; Wt 36.2 kg
[~2022-07-26 11:27] MED LIST changes: +ALPR.25; +AMLO5 PO; +ATOR20 PO; +Cephalexin250 MG/5 M PO; +FERSU300 PO; +Fiber625 MG PO; +HYDHCL25 PO; +QUET100 PO; +TRAM50 PO
[2022-07-26 12:41] LABS: BASOPHILS PERCENT AUTO 0 % (0-2); EOSINOPHILS ABSOLUTE AUTO 0.07 K/mm3 (0.00-0.68); EOSINOPHILS PERCENT AUTO 0 % (0-6); Hematocrit 29.6 % (33.0-51.0); Hemoglobin 9.9 g/dL (11.5-16.0); IMMATURE GRAN ABSOLUTE AUTO 1.33 K/mm3 (0.00-0.10); IMMATURE GRAN PERCENT AUTO 5 % (0-1); LYMPHOCYTES ABSOLUTE AUTO 1.28 K/mm3 (0.84-5.20); LYMPHOCYTES PERCENT AUTO 5 % (21-46); MONOCYTES ABSOLUTE AUTO 1.47 K/mm3 (0.16-1.47); MONOCYTES PERCENT AUTO 6 % (4-13); Mean Corpuscular HGB 26.5 pg (26.0-34.0); Mean Corpuscular HGB Conc 33.4 g/dL (31.5-36.5); Mean Corpuscular Volume 79 fL (80-100); Mean Platelet Volume 9.4 fL (9.1-12.4); NEUTROPHILS ABSOLUTE AUTO 21.46 K/mm3 (1.96-9.15); NEUTROPHILS PERCENT AUTO 83 % (41-73); Platelet Count 465 K/mm3 (150-400); RDW Coefficient Variation 16.2 % (11.7-14.2); RDW Standard Deviation 46.5 fL (35.1-46.3); Red Blood Cell Count 3.74 M/mm3 (3.80-5.20); White Blood Cell Count 25.71 K/mm3 (4.00-11.30)
[2022-07-26 12:53] LABS: Albumin/Globulin Ratio 0.4 (0.8-1.8); Bilirubin, Total 0.5 mg/dL (0.1-1.0); Bun/Creatinine Ratio 28.5 (12.0-20.0); Calcium, Blood 8.4 mg/dL (8.5-10.1); Creatinine, Blood 2.14 mg/dL (0.40-1.00); Globulin, Blood 5.6 g/dL (2.2-4.0); Potassium, Blood 4.1 mmol/L (3.5-5.5); Total Protein, Blood 7.6 g/dL (6.4-8.2)
[2022-07-26 13:32] LABS: Source, Urine Straight Cath
[2022-07-26 13:39] LABS: Bilirubin, Urine Neg (Neg); Blood, Urine 3+ (Neg); Color, Urine Yellow (P-Yellow); Glucose Qualitative, Urine Neg (Neg); Ketones, Urine Neg (Neg); Leukocyte Esterase, Urine Neg (Neg); Nitrite, Urine Neg (Neg); Protein, Urine 2+ (Neg); Specific Gravity, Urine 1.015 (1.003-1.022); Urobilinogen, Urine NORM (Normal)
[2022-07-26 13:46] LABS: Appearance, Urine Clear (Clear)
[2022-07-26 13:53] LABS: Amorphous Light (0-Heavy); Bacteria Few /hpf; Red Blood Cells, Urine 0-2 /hpf (0-2); Squamous Epithelial Cells Rare /hpf (Few); White Blood Cells, Urine 0-2 /hpf (0-5)
[2022-07-26 14:23] LABS: Influenza B, PCR NEGATIVE (NEGATIVE); Resp Syncytial Virus, PCR NEGATIVE (NEGATIVE); SARS-Cov-2 (COVID-19) PCR, MMC NEGATIVE (NEGATIVE)
[2022-07-26 14:33] LABS: Influenza A, PCR POSITIVE (NEGATIVE)
--- NOTE | 2022-07-26 19:40 | NUR ---
ASSUMPTION OF CARE PATIENT ARRIVES TO PCU 20 FROM ER AT SHIFT CHANGE. UPON ENTERING ROOM, DAY SHIFT RN GETTING PATIENT SETTLED AND BEDSIDE REPORT GIVEN TO THIS RN, IV MEDICATIONS INFUSING. PATIENT RESTING IN BED WITH EYES CLOSED. PATIENT ON RA WITH O2 SAT >90%. SOFT BPs, SEE VITALS. UNDERCAR SPECIALIST AWARE. PATIENT NOT WANTING TO PARTICIPATE IN CONVERSATION WITH STAFF OR ANSWER ORIENTATION QUESTIONS. PATIENT SWATTING AT STAFF WHEN ATTEMPTING TO DO CARE AND STATES "COVER ME UP, I'M COLD" AND TELLS STAFF TO EXIT ROOM. WARM BLANKET PROVIDED. KIRSTY RN AT BEDSIDE ATTEMPTING SECOND IV.
--- NOTE | 2022-07-26 20:23 | NUR ---
UPDATE JENNIE, "DERRICK CAR OPERATOR", FROM [facility] CALLED REQUESTING UPDATE AND TO RELAY MORE INFORMATION TO THIS RN. JENNIE STATING THAT THE PATIENT HAS BEEN REFUSING CARE IN THEIR FACILITY FOR ALMOST A YEAR. SHE ALSO STATES THAT THE PATIENT HAS 2 DAUGHTERs THAT ARE MINIMIMALLY INVOLVED WITH THE PATIENT'S CARE OR DECISIONS. JENNIE STATES THAT AT THE FACILITY THE PATIENT IS TO MAKE HER OWN DECISIONS AND HER DAUGHTERS ARE NOT INVOLVED IN DECISION MAKING. JENNIE ALSO RELAYS THAT SHE IS WORRIED ABOUT CARE AT DISCHARGE AND IS WONDERING ABOUT RESOURCES FOR HOSPICE OR PALLIATIVE CARE. PATIENT CONTINUES TO REFUSE CARE BUT IS RESTING IN BED COMFORTABLY.
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
--- NOTE | 2022-07-27 02:41 | NUR ---
UPDATE NO CHANGES AFTER SOLUMEDROL ADMINISTRATION. HAND DECORATOR PLACED CALL TO HOSPITALIST. OT IM DOSE OF EPI RECIEVED. NO ENT INDUSTRIAL SAFETY AND HEALTH SPECIALIST AT THIS TIME FOR CONSULT. RT UPDATED WELL.
[2022-07-27 03:49] LABS: Hematocrit 30.8 % (33.0-51.0); Mean Corpuscular HGB 26.2 pg (26.0-34.0); Mean Corpuscular HGB Conc 32.5 g/dL (31.5-36.5); Mean Corpuscular Volume 81 fL (80-100); Mean Platelet Volume 9.4 fL (9.1-12.4); Platelet Count 481 K/mm3 (150-400); RDW Coefficient Variation 16.6 % (11.7-14.2); RDW Standard Deviation 48.4 fL (35.1-46.3); Red Blood Cell Count 3.82 M/mm3 (3.80-5.20); White Blood Cell Count 26.78 K/mm3 (4.00-11.30)
[2022-07-27 04:11] LABS: Alanine Aminotransfer (ALT/SGP 35 U/L (12-78); Albumin, Blood 1.8 g/dL (3.4-5.0); Albumin/Globulin Ratio 0.4 (0.8-1.8); Alk Phos 102 U/L (50-136); Anion Gap 10 mmol/L (6-16); Aspartate Aminotrans (AST/SGOT 84 U/L (12-37); Bilirubin, Total 0.6 mg/dL (0.1-1.0); Blood Urea Nitrogen 38 mg/dL (8-24); CO2, Blood 20 mmol/L (21-32); Calcium, Blood 7.8 mg/dL (8.5-10.1); Chloride, Blood 110 mmol/L (98-108); Creatinine, Blood 1.15 mg/dL (0.40-1.00); Globulin, Blood 4.7 g/dL (2.2-4.0); Glomerular Filtration Rate 46 (60-); Glucose, Blood 99 mg/dL (70-99); Potassium, Blood 3.9 mmol/L (3.5-5.5); Sodium, Blood 140 mmol/L (136-145); Total Protein, Blood 6.5 g/dL (6.4-8.2); Vancomycin, Random 11.6 ug/mL
[2022-07-27 05:22] LABS: BAND PERCENT MAN 9 % (0-8); BASOPHILS PERCENT MAN 0 % (0-2); EOSINOPHILS PERCENT MAN 0 % (0-6); LYMPHOCYTES ABSOLUTE MAN 0.53 K/mm3 (0.84-5.20); LYMPHOCYTES PERCENT MAN 2 % (21-46); MONOCYTES ABSOLUTE MAN 0.26 K/mm3 (0.16-1.47); MONOCYTES PERCENT MAN 1 % (4-13); NEUTROPHILS ABSOLUTE MAN 25.97 K/mm3 (1.96-9.15); SEG NEUTROPHILS PERCENT MAN 88 % (41-73); TOTAL CELLS COUNTED 100
--- NOTE | 2022-07-27 05:46 | NUR ---
SHIFT SUMMARY PATIENT WAKES TO VERBAL STIMULI, BUT IS ONLY ORIENTED TO SELF AT THIS TIME. VSS, PATIENT REMAINS ON RA WITH O2 SAT >90%. NO CHANGES SINCE PREVIOUS NOTES REGARDING FACIAL SWELLING. SEE PREVIOUS NOTES/UPDATES. ALCANTARA IN PLACE DRAINING YELLOW URINE TO GRAVITY. PATIENT REFUSES SOME CARE AND WILL SWAT AT STAFF AT TIMES. NO OTHER CHANGES, WILL REPORT TO DAY SHIFT RN.
--- NOTE | 2022-07-27 12:08 | NUR ---
UPDATE PT HAS BEEN SLEEPING SINCE CAHN[place] OF SHIFT. PT APPEARS TO BE COMFORTABLE, IN NO APPARENT DISCOMFORT/PAIN/DISTRESS. THIS RN HAS ATTEMPTED ON SEVERAL OCCASIONS TO REPOSITION THE PT. PT HAS RESISTED AND EVEN SWATTED AT THE STAFF WHILE ATTEMPTING TO REPOSITION. PT RETURNS TO A LEFT SIDE-LYING POSITION EACH TIME.
--- NOTE | 2022-07-27 14:26 | NUR ---
UPDATE PT WAS CALLING OUT FOR WATER, CISTERN ROOM OPERATOR AND ANOTHER RN ENTERED THE ROOM TO ASSIST. PT WAS REPOSITIONED TO SAFELY DRINK AND GIVEN SIPS OF WATER. PT THEN COMPLAINED OF BEING COLD, WARM BLANKETS WERE PLACED ON THE PT THIS RN ENTERED THE ROOM. EMERGENCY MANAGEMENT SYSTEM DIRECTOR ALARMED FOR HIGH HEART RATE AND SHOWED A RATE OF 170+. THIS RN CALLED THE PROVIDER AND WAS GIVEN ORDERS FOR IV METOPROLOL 2.5MG PUSH ONE TIME. THE PROVIDER ARRIVED IN ROOM JUST AFTER THE MEDICATION WAS ADMINISTERED AND GAVE ORDERS FOR A SECOND IV METOPROLOL 2.5MG ONE TIME PUSH. PT WAS AGITATED AND CALLING OUT. PROVIDER ORDERED A STAT EKG THAT WAS OBTAINED. PT WAS GIVEN MORE WATER, REPOSITIONED, AND THEN LEFT TO REST AT THE PT'S DEMAND. BLOOD PRESSURE OBTAINED AFTER IV METOPROLOL PUSH READ 102/71.
--- NOTE | 2022-07-27 17:17 | NUR ---
SHIFT SUMMARY PT HAS SLEPT FOR MOST OF THE DAY. IN THE MORNING, PT WAS MINIMALLY RESPONSIVE TO STAFF, THEY WOULD OPEN ONE EYE WHEN THEY WERE TALKED TO AND WOULD PULL AWAY WHEN REPOSITIONING WAS ATTEMPTED. PT ALWAYS TURNED SELF TO LEFT SIDE. IN THE EVENING, PT BECAME MUCH MORE VERBAL, MAKING LOUD NOISES AND CALLING OUT. PT WAS NOT COOPERATIVE WITH ANY CARES, PULLING AWAY, GRABBING AT STAFF, ATTEMPTING TO PUSH STAFF AWAY. IN THE AFTERNOON, PT STATED THAT THEY NEEDED TO HAVE A BOWEL MOVEMENT, THEY WERE PLACED ON THE BED DICKSON AND IMMEDIATELY ROLLED OFF. THE BEDPAN WAS ATTEMPTED AGAIN TWICE MORE, EACH TIME THEY WOULD IMMEDIATELY ROLL OFF OF THE BEDPAN. DURING THE LAST ATTEMPT WITH THE BEDPAN, PT ROLLED OFF AND REACHED DOWN AND DIGITALLY REMOVED STOOL. PT WAS THEN GIVEN A BED BATH DURING WHICH HEART RHYTHM COVERTED TO A.FIB WITH A SUSTAINED RATE OF 160'S.
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
--- NOTE | 2022-07-27 22:33 | NUR ---
UPDATE PATIENT BECOMING INCREASINGLY ANXIOUS AND RESTLESS. PATIENT STATING SHE IS UNABLE TO BREATHE AND HAS INCREASED WORK OF BREATHING, SATS REMAIN >90% ON RA. LUNG SOUNDS COARSE T/O, SLIGHTLY CHANGED FROM INITAL ASSESSMENT. 2L NC PLACED FOR COMFORT, PATIENT STATES IT GAVE RELIEF. MAINTAINANCE FLUIDS ON STANDBY AT THIS TIME. CALL PLACED TO HOSPITALIST WITH UPDATE, ORDERS RECIEVED FOR STAT BNP AND IV ATIVAN. SEE UPDATED ORDERS. PATIENT RESTING AFTER ATIVAN ADMINISTRATION, AWAITING LAB RESULTS.
--- NOTE | 2022-07-28 06:57 | NUR ---
SHIFT SUMMARY PATIENT ALERT, ORIENTED TO SELF ONLY, ATTEMPTS TO CONVERSE WITH STAFF BUT IS CONFUSED AND IS ONLY ANSWERING YES OR NO QUESTIONS AT THIS TIME, ALSO REFUSES CARE. VSS, PATIENT ON RA FOR MAJORITY OF SHIFT WITH 02 SAT >90%. SEE PREVIOUS NOTES FOR OTHER UPDATES. ALCANTARA IN PLACE DRAINING DARK YELLOW URINE TO GRAVTIY. NO OTHER SIGNIFICANT CHANGES, WILL REPORT TO DAY SHIFT RN.
[2022-07-28 10:30] LABS: BASOPHILS PERCENT AUTO 1 % (0-2); EOSINOPHILS PERCENT AUTO 0 % (0-6); Hematocrit 31.9 % (33.0-51.0); Hemoglobin 10.5 g/dL (11.5-16.0); IMMATURE GRAN ABSOLUTE AUTO 0.83 K/mm3 (0.00-0.10); IMMATURE GRAN PERCENT AUTO 4 % (0-1); LYMPHOCYTES ABSOLUTE AUTO 1.03 K/mm3 (0.84-5.20); LYMPHOCYTES PERCENT AUTO 5 % (21-46); MONOCYTES ABSOLUTE AUTO 0.52 K/mm3 (0.16-1.47); MONOCYTES PERCENT AUTO 2 % (4-13); Mean Corpuscular HGB 25.8 pg (26.0-34.0); Mean Corpuscular HGB Conc 32.9 g/dL (31.5-36.5); Mean Corpuscular Volume 78 fL (80-100); Mean Platelet Volume 8.8 fL (9.1-12.4); NEUTROPHILS PERCENT AUTO 89 % (41-73); Platelet Count 656 K/mm3 (150-400); RDW Coefficient Variation 16.7 % (11.7-14.2); RDW Standard Deviation 47.5 fL (35.1-46.3); Red Blood Cell Count 4.07 M/mm3 (3.80-5.20); White Blood Cell Count 22.08 K/mm3 (4.00-11.30)
[2022-07-28 10:57] LABS: Bun/Creatinine Ratio 37.1 (12.0-20.0); Calcium, Blood 7.9 mg/dL (8.5-10.1); Creatinine, Blood 0.78 mg/dL (0.40-1.00); Potassium, Blood 3.6 mmol/L (3.5-5.5)
--- NOTE | 2022-07-28 14:39 | NUR ---
Chiara is an 87 year old woman who claims she has lived at [facility] for approximately 5 years and states she enjoys living there "very much", and doesn't want to live anywhere else. She is able to state she does not wish to have a feeding tube, and is able to express her lack of appetite recently. She does attribute some of her poor appetite to the cellulitis, pain and swelling in the R side of her jaw. Palliative care will remain available.
--- NOTE | 2022-07-28 17:58 | NUR ---
SHIFT SUMMARY PT HAS BEEN MORE ALERT TODAY WHEN COMPARED WITH YESTERDAY. PT HAS FREQUENTLY CALLED OUT. PT WAS COMBATIVE DURING CARES, WOULD PUSH STAFF AWAY, GRAB AND SWING AT, AND SAY "NO" REPEATEDLY. PT UNDRESSED AND PULLED AT LINES AND CORDS FREQUENTLY, TELEMETRY WAS REAPPLIED MANY TIMES. AFTER AM ASSESSMENT, PT WENT INTO A.FIB RVR WITH A RATE IN THE 180'S. ORDERS WERE OBTAINED AND HEART RATE SLOWLY FELL ULTIMATELY CONVERTING BACK TO SINUS IN THE 80'S. ALL OTHER VITALS HAVE REMAINED STABLE.
--- NOTE | 2022-07-29 04:48 | NUR ---
SHIFT SUMMARY: PT REMAINS A/O TO SELF ONLY. PT ANSWERING YES OR NO QUESTIONS. PT WAS ABLE TO TELL STAFF SHE WAS WANTING WATER AND THAT SHE WAS COLD, BUT IS ONLY USING ONE WORD SENTENCES. PT WAS COMBATIVE AT BEGINNING OF SHIFT, SLAPPING AT THIS RN WHEN ATTEMPTING TO CHECK IV. COURSE CRACKLES T/O LUNGS. RESPIRATIONS EVEN AND UNLABORED. SPO2 >92% T/O SHIFT. PT HR IN THE 80'S. SR FOR MAJORITY OF SHIFT WITH OCCASIONAL EPISODES OF AFIB, BUT HR REMAINED IN THE 80'S. PT RESISTIVE TO MOST CARE. PT DECLINED ANY REPOSITIONING, BUT IS ABLE TO SLIGHTLY REPOSITION EXTREMITIES INDEPENDENTLY. VSS THROUGHOUT SHIFT. ALCANTARA DRAINING LIGHT YELLOW URINE TO GRAVITY. NO ACUTE CHANGES THIS SHIFT. WILL REPORT TO ONCOMING RN.
[2022-07-29 05:04] LABS: BASOPHILS ABSOLUTE AUTO 0.13 K/mm3 (0.00-0.23); BASOPHILS PERCENT AUTO 1 % (0-2); EOSINOPHILS PERCENT AUTO 0 % (0-6); Hematocrit 36.6 % (33.0-51.0); Hemoglobin 11.9 g/dL (11.5-16.0); IMMATURE GRAN ABSOLUTE AUTO 1.02 K/mm3 (0.00-0.10); IMMATURE GRAN PERCENT AUTO 4 % (0-1); LYMPHOCYTES ABSOLUTE AUTO 1.83 K/mm3 (0.84-5.20); LYMPHOCYTES PERCENT AUTO 8 % (21-46); MONOCYTES ABSOLUTE AUTO 0.41 K/mm3 (0.16-1.47); MONOCYTES PERCENT AUTO 2 % (4-13); Mean Corpuscular HGB 25.2 pg (26.0-34.0); Mean Corpuscular HGB Conc 32.5 g/dL (31.5-36.5); Mean Corpuscular Volume 78 fL (80-100); NEUTROPHILS ABSOLUTE AUTO 21.13 K/mm3 (1.96-9.15); NEUTROPHILS PERCENT AUTO 86 % (41-73); Platelet Count 766 K/mm3 (150-400); RDW Coefficient Variation 16.5 % (11.7-14.2); RDW Standard Deviation 46.6 fL (35.1-46.3); Red Blood Cell Count 4.72 M/mm3 (3.80-5.20); White Blood Cell Count 24.52 K/mm3 (4.00-11.30)
[2022-07-29 05:26] LABS: Alanine Aminotransfer (ALT/SGP 37 U/L (12-78); Albumin, Blood 2.2 g/dL (3.4-5.0); Albumin/Globulin Ratio 0.4 (0.8-1.8); Alk Phos 117 U/L (50-136); Anion Gap 12 mmol/L (6-16); Aspartate Aminotrans (AST/SGOT 49 U/L (12-37); Bilirubin, Total 0.4 mg/dL (0.1-1.0); Blood Urea Nitrogen 23 mg/dL (8-24); Bun/Creatinine Ratio 34.1 (12.0-20.0); CO2, Blood 25 mmol/L (21-32); Calcium, Blood 8.5 mg/dL (8.5-10.1); Chloride, Blood 105 mmol/L (98-108); Creatinine, Blood 0.68 mg/dL (0.40-1.00); Globulin, Blood 5.1 g/dL (2.2-4.0); Glomerular Filtration Rate 84 (60-); Glucose, Blood 117 mg/dL (70-99); Potassium, Blood 3.3 mmol/L (3.5-5.5); Sodium, Blood 142 mmol/L (136-145); Total Protein, Blood 7.3 g/dL (6.4-8.2); Vancomycin, Random 13.8 ug/mL
--- NOTE | 2022-07-29 13:30 | NUR ---
Pt has failed swallow eval again; she verbalizes understanding of this. She has adamantly refused any and all conversation around feeding tubes. She states, "NO!" when asked if she would ever agree to a feeding tube. She also declined TPN, and stated, "Please bring me water". This is not suprising, as daughter Maribeth as well as RN and [facility] [place] all report pt is "fiercely independant, and in the past has made it known she would not and does not wish to be kept alive by artificial means. I explained to pt what hospice services offer, and the hospice philosophy. She agreed to hospice, states, "This is right for me". Orders for comfort care and referral to hospice placed via v/o from Dr. Denny. Will notify family of pt's decision, as well as [place]. Orders placed.
--- NOTE | 2022-07-29 17:25 | NUR ---
Pt will be going home with [facility] this week, on or thursday. Pt deferred to Terry to choose agency. Notified daughter Maribeth, who will pass the infor to her sister Katia, pt's other daughter. Pt is laying back in bed, appears to be resting comfortably.
--- NOTE | 2022-07-29 17:53 | NUR ---
SHIFT SUMMARY PT IS CURRENTLY SLEEPING IN BED, THEY APPEAR TO BE COMFORTABLE AND IN NO APPARENT DISTRESS. AT THE START OF SHIFT THEY WERE IRRITABLE AND APPEARED UNCOMFORTABLE. PT DENIED ANY C/O PAIN WHEN ASKED. PT DECLINED FOOD WHEN OFFERED. PT DID REQUEST WATER THROUGHOUT THE DAY, THIS REQUEST WAS MET AFTER NPO ORDER WAS DISCONTINUED AND COMFORT CARE MEASURES WERE ORDERED.
[2022-07-30 06:23] LABS: BASOPHILS PERCENT AUTO 1 % (0-2); EOSINOPHILS PERCENT AUTO 0 % (0-6); Hemoglobin 12.1 g/dL (11.5-16.0); IMMATURE GRAN ABSOLUTE AUTO 0.65 K/mm3 (0.00-0.10); IMMATURE GRAN PERCENT AUTO 4 % (0-1); LYMPHOCYTES ABSOLUTE AUTO 1.07 K/mm3 (0.84-5.20); LYMPHOCYTES PERCENT AUTO 7 % (21-46); MONOCYTES ABSOLUTE AUTO 0.43 K/mm3 (0.16-1.47); MONOCYTES PERCENT AUTO 3 % (4-13); Mean Corpuscular HGB 25.7 pg (26.0-34.0); Mean Corpuscular HGB Conc 33.6 g/dL (31.5-36.5); Mean Corpuscular Volume 76 fL (80-100); Mean Platelet Volume 8.4 fL (9.1-12.4); NEUTROPHILS ABSOLUTE AUTO 13.04 K/mm3 (1.96-9.15); NEUTROPHILS PERCENT AUTO 85 % (41-73); Platelet Count 650 K/mm3 (150-400); RDW Standard Deviation 44.9 fL (35.1-46.3); Red Blood Cell Count 4.71 M/mm3 (3.80-5.20); White Blood Cell Count 15.29 K/mm3 (4.00-11.30)
[2022-07-30 06:44] LABS: Vancomycin, Random 14.9 ug/mL
[2022-07-30 06:45] LABS: Bun/Creatinine Ratio 28.9 (12.0-20.0); Calcium, Blood 8.4 mg/dL (8.5-10.1); Creatinine, Blood 0.59 mg/dL (0.40-1.00); Potassium, Blood 3.2 mmol/L (3.5-5.5)
--- NOTE | 2022-07-30 06:51 | NUR ---
SHIFT SUMMARY NO SIGNIFICANT CHANGES T/O SHIFT. PT WAS ABLE TO REST COMFORTABLY FOR MAJORITY OF SHIFT. PT AGITATED AT TIMES, PULLING OUT POWERGLIDE AND PULLING OF SPO2 MONITOR. PT MEDICATED WITH PRN ATIVAN ONCE DURING SHIFT. ORAL CARE AND Q2 TURNS T/O SHIFT WHEN PT WOULD ALLOW. PT DECLINING CARE AT TIMES. PT WAS PLEASANT WITH STAFF. PT ASKED FOR WATER FREQUENTLY AND WAS ABLE TO TOLERATE SMALL SIPS. PT RESPIRATIONS ARE EVEN AND UNLABORED, SPO2 >92% ON RA PRIOR TO PT REMOVING. WILL REPORT TO ONCOMING RN.
--- NOTE | 2022-07-30 11:05 | NUR ---
PATIENT CONTINUES ON COMFORT CARE WITH IV ABX RUNNING. SENIOR CAREGIVER UPDATED THIS APPLE SOLUTIONS CONSULTANT THAT THE PATIENT WOULD BE DISCHARGING TOMORROW TO [facility] WITH [facility] ON BOARD. PATIENT IS HAVING SOME ANXIETY TODAY. 1MG PO ATIVAN WAS GIVEN A SHORT TIME AGO. PATIENT IS RESTING.
--- NOTE | 2022-07-30 18:01 | NUR ---
SHIFT SUMMARY; ASSUMED CARE AT 1500, RESTING IN BED, ON COMFORT CARE. PLAN TO DC TOMORROW WITH HOSPICE TO [facility]. MEDICATED PER EMAR.
--- NOTE | 2022-07-31 05:34 | NUR ---
CHIEF DESIGN BRANCH SUMMARY NO OVERNIGHT EVENTS THE PT SLEPT COMFORTABLY FOR MOST OF THE NIGHT. PT WAS GIVEN ATIVAN X1 FOR ANXIETY AT THE START OF THE SHIFT BUT HAS DENIED ANY PAIN OR NAUSEA THIS SHIFT. ALCANTARA PATENT AND DRAINING CLEAR YELLOW URINE THIS SHIFT. WILL REPORT TO ONCOMING RN.
[2022-07-31] MEDS ORDERED: ACET325 PO (10:09)
[2022-07-31] MEDS ORDERED: TRANSDERM-SCOP1 EACH TD (10:10)
--- NOTE | 2022-07-31 16:30 | NUR ---
END OF SHIFT/DISCHARGE SUMMARY: PATIENT WAS ON RA, NO ACUTE SIGNS OF CARDIAC OR PULMONARY DISTRESS AT TIME OF DISCHARGE VIA [facility] FOR TRANSPORT VIA TRANSPORT SERVICE TO [facility] WITH HOSPICE. PATIENT WAS PREMEDICATED FOR SECRETIONS, PAIN, AND ANXIETY PER MAR. PATIENT WAS GIVEN A BATH REPOSITIONED Q1-2 HOURS BUT ALWAYS WAS IN THE SAME POSITION LEFT SIDE MOMENTS AFTER REPOSITIONING. PATIENT WAS NOT ABLE TO MAKE ALL NEEDS KNOWN, BUT USED NONVERBAL TECHNIQUES TO ESTABLISH PAIN, AND ANXIETY. PATIENT HAS ALCANTARA IN PLACE, WAS DISCHARGE BY HEAD ATHLETIC TRAINER TO TRANSPORT. NO CONCERNS FROM THIS RN AT TIME OF DISCHARGE.
== END 2022-07-31 16:19 | disposition home or self-care (01) | DRG 871 ==
LOC: ER 11:27 → PCU 17:22
PROVIDERS: Family Medicine; Student in an Organized Health Care Education/Training Program; ADMIT Family Medicine
DX: A41.02 Sepsis due to Methicillin resistant Staphylococcus aureus (principal); G92.8 Other toxic encephalopathy; J10.08 Influenza due to other identified influenza virus with other specified pneumonia; J15.212 Pneumonia due to Methicillin resistant Staphylococcus aureus; J12.9 Viral pneumonia, unspecified; L03.211 Cellulitis of face; N17.9 Acute kidney failure, unspecified; R64 Cachexia; E87.1 Hypo-osmolality and hyponatremia; I50.32 Chronic diastolic (congestive) heart failure; I13.0 Hypertensive heart and chronic kidney disease with heart failure and stage 1 through stage 4 chronic kidney disease, or unspecified chronic kidney disease; Z68.1 Body mass index [BMI] 19.9 or less, adult; K11.20 Sialoadenitis, unspecified; Z51.5 Encounter for palliative care; Z66 Do not resuscitate; E87.6 Hypokalemia; R65.20 Severe sepsis without septic shock; E03.9 Hypothyroidism, unspecified; F03.90 Unspecified dementia, unspecified severity, without behavioral disturbance, psychotic disturbance, mood disturbance, and anxiety; M06.9 Rheumatoid arthritis, unspecified; M79.7 Fibromyalgia; K21.9 Gastro-esophageal reflux disease without esophagitis; M60.88 Other myositis, other site; N18.30 Chronic kidney disease, stage 3 unspecified; D63.1 Anemia in chronic kidney disease; D75.839 Thrombocytosis, unspecified; B96.89 Other specified bacterial agents as the cause of diseases classified elsewhere; Z20.822 Contact with and (suspected) exposure to COVID-19; Z88.8 Allergy status to other drugs, medicaments and biological substances; Z88.0 Allergy status to penicillin; Z88.2 Allergy status to sulfonamides; Z88.5 Allergy status to narcotic agent; Z91.018 Allergy to other foods; Z79.899 Other long term (current) drug therapy; Z79.02 Long term (current) use of antithrombotics/antiplatelets; Z79.52 Long term (current) use of systemic steroids; Z79.891 Long term (current) use of opiate analgesic; I25.2 Old myocardial infarction; Z86.718 Personal history of other venous thrombosis and embolism; Z79.01 Long term (current) use of anticoagulants; Z98.890 Other specified postprocedural states; Z90.710 Acquired absence of both cervix and uterus; Z98.49 Cataract extraction status, unspecified eye; Z87.891 Personal history of nicotine dependence
CPT/HCPCS: 0241U; 36415; 51702; 70491; 71045; 80048; 80053; 80202; 81001; 82947; 83605; 83735; 83880; 85025; 87040; 87070; 87077; 87081; 87147; 87186; 87205; 87430; 92526; 92610; 93005; 93010; 94760; 96365-59; 96367-59; 99285-25; A9270; C1751; J0171; J0456; J1644; J1940; J2060; J2185; J2920; J2930; J3010; J3370; J3480; J7030; J7050; J7120; Q9967